=== PATIENT | male | born 1955 | race Caucasian/White ===

== ENCOUNTER 2016-02-26 03:28 | Emergency (ER) | payer OTHER ==
[~2016-02-26] VITALS: Ht 167.6 cm; Wt 77.1 kg
[~2016-02-26 03:28] MED LIST: ACIDOPHILUS1 EACH PO; ADULT WAL-100 MG/5 M PO; ALBUTEROL SULFAT3 M1 INH; ARTIFICIAL TEAR15 M3 OPH; ATIVAN0.5 MG PO; AUGMENTIN 875-1 EACH PO; COCONUT OIL 1 ML1 ML PO; COLACE20 MG/5 ML PO; CRANBERRY450 M3 PO; CYCLOBENZAPRINE5 M2 PO; DOCUSATE S60 MG/15 M PO; DURAGESIC12 MCG/HR TOP; FLOMAX(MONOGRA0.4 MG PO; IPRAT-ALBUT 0.5-3 ML INH; LEVAQUIN500 M1 PO; LEXAPRO 10MG10 MG PO; MIRALAX17 G1 PO; MIRALAX17 GM PO; MULTIVITAMIN1 TAB PO; NAMENDA XR28 MG PO; OXYBUTYNIN CHLOR5 M2 PO; PERCOCET 325 MG1 TA2 PO; PROTONIX40 M3 PO; PROTONIX40 M4 PO; REMERON 15MG TA15 MG PO; TIZANIDINE4 MG PO; TRAMADOL50 MG PO; TRAZODONE50 MG PO; VITAMIN D250000 UNIT PO; VITAMIN D50000 IU PO
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
[2016-02-26 04:53] LABS: ABSOLUTE BASOPHIL COUNT 0 /CUMM (0.0-0.2); ABSOLUTE EOSINOPHIL COUNT 0.1 /CUMM (0.0-0.7); ABSOLUTE GRANULOCYTE CT 7.5 /CUMM (1.4-6.5); ABSOLUTE LYMPH COUNT 1.9 /CUMM (1.2-3.4); ABSOLUTE MONOCYTE COUNT 0.4 /CUMM (0.10-0.60); BASOPHIL % 0.2 % (0.0-2.0); EOSINOPHIL % 0.5 % (0-5); GRANULOCYTE % 75.8 % (42.2-75.2); HEMATOCRIT 41.5 % (42-52); MEAN CORPUSCULAR HGB 29.5 PG (27.0-31.0); MEAN CORPUSCULAR HGB CONC 33.4 G/DL (33.0-37.0); MEAN CORPUSCULAR VOLUME 88.3 FL (80.0-94.0); PLATELET COUNT 225 /CUMM (130-400); RBC DISTRIBUTION WIDTH 14.1 % (11.5-14.5); WHITE BLOOD CELL COUNT 9.9 /CUMM (4.8-10.8)
--- NOTE | 2016-02-26 05:03 | RADIOLOGY REPORT ---
EXAMINATION: XR PORTABLE CHEST CLINICAL INFORMATION: Fever. COMPARISON: 07/20/2015 TECHNIQUE: Portable view of the chest was obtained. FINDINGS: Low lung volumes. No dense consolidation, edema, or effusion. No pneumothorax. The cardiomediastinal silhouette is within normal limits. No acute osseous abnormality. IMPRESSION: Hypoexpanded lungs with no acute findings.
--- NOTE | 2016-02-26 05:06 | CT SCAN REPORT ---
EXAMINATION: CT ABDOMEN AND PELVIS WITHOUT CONTRAST CLINICAL INFORMATION: Abdominal distention. Vomiting. COMPARISON: None. TECHNIQUE: Multidetector volumetric imaging was performed from the superior aspect of the liver through the pubic symphysis. Sagittal and coronal reformatted images were obtained on the technologist's workstation. DLP: 704 mGy-cm. FINDINGS: LUNG BASES: The visualized lung bases are unremarkable. LIVER, GALLBLADDER, AND BILIARY TREE: The liver is normal in size, shape, and attenuation. No focal hepatic lesion or biliary ductal dilatation is present. The gallbladder is unremarkable with no evidence of radiopaque gallstones, gallbladder wall thickening, or obvious pericholecystic inflammatory changes. PANCREAS: Unremarkable. SPLEEN: Unremarkable. ADRENAL GLANDS: Unremarkable. KIDNEYS AND URETERS: The kidneys are normal in size, shape, and attenuation. No hydronephrosis or hydroureter. No perinephric stranding. Bilateral calculi are seen. There is a 0.9 cm calculus in the right renal pelvis, 9 cm from the posterior axillary line, measuring 500 Hounsfield units. There is a right mid to upper pole calculus measuring 0.6 cm. There is a 0.3 cm left midpole calculus 6 cm from the posterior axillary line. The ureters are decompressed. BLADDER: Decompressed with a suprapubic catheter in place. GASTROINTESTINAL TRACT: The stomach and small bowel appear unremarkable. No dilated loops of bowel or evidence of obstruction. No colonic wall thickening or inflammatory change. Normal appendix. No free air or free fluid. ABDOMINAL WALL: No significant hernia is appreciated. LYMPH NODES: Normal. VASCULAR: Unremarkable. PELVIC VISCERA: The prostate and seminal vesicles are unremarkable. OSSEOUS STRUCTURES: No acute or suspicious osseous abnormality. Multilevel degenerative changes of the spine. Degenerative changes of the right hip. IMPRESSION: No hydronephrosis. Bilateral renal calculi, with a 0.9 cm calculus in the right renal pelvis. No bowel obstruction or inflammatory change.
[2016-02-26 05:34] VITALS: BP 120/76
[2016-02-26] MEDS ORDERED: SENNA8.6 M3 PO ×2 (11:37→15:53)
[2016-02-26] MEDS ORDERED: BACLOFEN10 M1 PO ×2 (11:38→15:53)
[2016-02-26] MEDS ORDERED: CLARITIN10 M1 PO ×2 (11:39→15:55)
[2016-02-26] MEDS ORDERED: CRANBERRY450 M3 PO (15:53)
[2016-02-26] MEDS ORDERED: ARTIFICIAL TEAR15 M4 OPH (15:55)
[2016-02-26] MEDS ORDERED: TRAZODONE HCL50 M1 PO (15:55)
[2016-02-26] MEDS ORDERED: MIRALAX17 G1 PO (15:56)
[2016-02-26] MEDS ORDERED: ROBITUSSIN COU118 M1 PO (15:56)
[2016-02-26] MEDS ORDERED: PROTONIX40 M3 PO (15:56)
[2016-02-26] MEDS ORDERED: LEXAPRO10 M1 PO (15:57)
[2016-03-13] MEDS ORDERED: LORAZEPAM0.5 M1 PO (15:16)
[2016-03-13] MEDS ORDERED: TRAMADOL HCL50 M1 PO (15:17)
[2016-03-13] MEDS ORDERED: VITAMIN D250000 UNIT PO (15:18)
[2016-03-13] MEDS ORDERED: ONDANSETRON HCL4 MG PO (15:20)
== END 2016-02-26 05:59 ==
LOC: ERH 03:28
PROVIDERS: Pediatrics
DX: N39.0 Urinary tract infection, site not specified (principal); R11.10 Vomiting, unspecified
CPT/HCPCS: 74176; 81001; 87040; 87071; 87086; 93005; 93010; 96374; 96375; J0131; J0696; J2405

== ENCOUNTER 2016-02-26 11:24 | Inpatient (IN) | payer OTHER ==
[~2016-02-26] VITALS: Ht 165.1 cm; Wt 68.0 kg
--- NOTE | 2016-02-26 11:30 | NUR ---
PT BIBA FROM ECF. PT WAS SEEN IN ER FOR SAME IN EARLY AM AND D/C BACK TO ECF WITH A DX OF UTI. PT RETURNS WITH AN INCREASE OF BLOOD IN HIS SPT DRAINAGE BAG. INCREASE IN DIAPHORESIS AND N/V. PT ARRIVES TO ED WITH NO ACTIVE VOMITING, NOTED BEADS OF SWEAT ON FOREHEAD. PT HAS HX OF DEMENTIA, HOWEVER IS TIGHTENING UP BODY AND APPEARING TO BE IN PAIN. MEI DELGADO D IN TO EVAL. PTS ABD NOTED TO BE FIRM/DISTENDED. ALSO NOTED WITH DRAINAGE AROUND SPT INSERTION SITE.
[2016-02-26] MEDS ORDERED: SENNA8.6 M3 PO ×2 (11:37→15:53)
[2016-02-26] MEDS ORDERED: BACLOFEN10 M1 PO ×2 (11:38→15:53)
[2016-02-26] MEDS ORDERED: CLARITIN10 M1 PO ×2 (11:39→15:55)
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
[2016-02-26 12:19] LABS: ABSOLUTE BASOPHIL COUNT 0 /CUMM (0.0-0.2); ABSOLUTE EOSINOPHIL COUNT 0 /CUMM (0.0-0.7); ABSOLUTE GRANULOCYTE CT 10.3 /CUMM (1.4-6.5); ABSOLUTE LYMPH COUNT 0.5 /CUMM (1.2-3.4); ABSOLUTE MONOCYTE COUNT 0.3 /CUMM (0.10-0.60); BASOPHIL % 0 % (0.0-2.0); EOSINOPHIL % 0.2 % (0-5); GRANULOCYTE % 92.4 % (42.2-75.2); HEMATOCRIT 37.1 % (42-52); MEAN CORPUSCULAR HGB 30.1 PG (27.0-31.0); MEAN CORPUSCULAR HGB CONC 33.8 G/DL (33.0-37.0); MEAN CORPUSCULAR VOLUME 88.9 FL (80.0-94.0); MEAN PLATELET VOLUME 7.6 FL (7.4-10.4); PLATELET COUNT 173 /CUMM (130-400); RBC DISTRIBUTION WIDTH 14.3 % (11.5-14.5); RED BLOOD CELL CT 4.18 /CUMM (4.70-6.10); WHITE BLOOD CELL COUNT 11.2 /CUMM (4.8-10.8)
--- NOTE | 2016-02-26 12:35 | NUR ---
PT MEDICATED WITH 2MG MORPHINE FOR PAIN, IV TYLENOL ADMINISTERED (SEE MAR) ATTEMPTED TO FLUSH SPT PER REQUEST, HOWEVER UNABLE TO GET ANY RETURN. PA AWARE, PT BLADDER SCANNED FOR APPRX 204ML URINE - PA AWARE OF THAT VALUE WELL. NS INFUSING, ROCEPHIN ADMINISTERED, AND CLEOCIN INFUSING AT THIS TIME (SEE MAR) PT RESTING MORE COMFORTABLY ON STRETCHER AT THIS TIME, MOANS HAVE DECREASED AT THIS TIME.
[2016-02-26 12:49] LABS: PT 13.1 SEC (9.4-12.5); PTT 25 SEC (25-37)
--- NOTE | 2016-02-26 12:56 | NUR ---
CRITICAL TEST RESULTS [id number] ANDRÉS MONK 60 M TESTS AND RESULTS: LACTIC ACID 3.3 Results received and read back by: DYANA SOLIS Results received date and time: 02/26/16 1256 The following provider was notified of the results, and read the results back: MEI SINGH Notified date and time: 02/26/16 at 1256
--- NOTE | 2016-02-26 13:10 | NUR ---
FAMILY MEMBER IS EXPLOSIVE WITH STAFF DEMANDING PHYSICIAN IMMEDIATELY AND NOT A PA. THIS RN TO BEDSIDE TO EXPLAIN THAT THE DOCTOR HAS ALREADY BEEN INVOLVED IN THE PATIENT'S CARE AND SHE WILL BE IN SHORTLY. FAMILY MEMBER IS DISSATISFIED AND DEMANDING THAT DOCTOR LEAVE BEDSIDE OF A CRITICAL PATIENT AND THAT THIS RN GET A DOCTOR FROM ANOTHER FLOOR. SHE CONTINUES TO SHOUT AT THIS NURSE AND IS UNABLE TO BE VERBALLY DEESCALATED. UNWILLING TO LISTEN TO PATIENT'S ISSUES AND INTERVENTIONS UP TO THIS POINT. WANTS DOCTOR AT THE BEDSIDE CONSISTENTLY. SHE WAS EXPLAINED HOW THIS IS NOT A HOSPITAL POLICY AND SHE BEGAN THREATENING AND STORMED OUT OF ED TO "GO UPSTAIRS TO GET A DOCTOR". DR ORLANDO AND CHARGE NURSE AWARE.
--- NOTE | 2016-02-26 13:18 | NUR ---
FAMILY BACK TO ROOM. DR ORLANDO AT BEDSIDE TO DEESCALATE PT AND EXPLAIN PLAN OF CARE.
--- NOTE | 2016-02-26 14:00 | NUR ---
PT REPOSITIONED IN BED, VITALS REASSESSED, RECTAL TEMP 98.9 AT THIS TIME, PT APPEARS TO HAVE AN INCREASE IN MUSCLE TIGHTNESS. PT MEDICATED WITH VALIUM ORDERED (SEE MAR)
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
--- NOTE | 2016-02-26 14:25 | NUR ---
HOUSE STAFF TO [facility].
--- NOTE | 2016-02-26 14:32 | NUR ---
PTS LABORER DRYING DEPARTMENT CALLED FOR UPDATE
--- NOTE | 2016-02-26 15:00 | NUR ---
REPEAT LACTIC ACID DRAWN AND SENT TO LAB. SST ALSO SENT
--- NOTE | 2016-02-26 15:09 | NUR ---
PT HAS BED ASSIGNMENT 235-1. RN NOTIFIED.
--- NOTE | 2016-02-26 15:30 | NUR ---
HOUSE STAFF TO [facility].
--- NOTE | 2016-02-26 15:35 | NUR ---
SPT CHANGED OUT BY DR ORLANDO, APPROX 300ML DARK CLOUDY URINE OBTAINED, SHORTLY AFTER PT NOTED WITH BLOOD COMING FROM HIS PENIS. CONDOM CATH PLACED, PT TURNED, REPOSITIONED, AND CLEANED UP.
--- NOTE | 2016-02-26 15:42 | NUR ---
CRITICAL TEST RESULTS [id number] ANDRÉS MONK 60 M TESTS AND RESULTS: LACTIC ACID 2.8 Results received and read back by: DYANA SOLIS Results received date and time: 02/26/16 1542 The following provider was notified of the results, and read the results back: DR ORLANDO Notified date and time: 02/26/16 at 1542
--- NOTE | 2016-02-26 15:46 | NUR ---
FLOOR WILL CALL BACK LATER WITH REPORT.
[2016-02-26] MEDS ORDERED: CRANBERRY450 M3 PO (15:53)
[2016-02-26] MEDS ORDERED: TRAZODONE HCL50 M1 PO (15:55)
[2016-02-26] MEDS ORDERED: ARTIFICIAL TEAR15 M4 OPH (15:55)
[2016-02-26] MEDS ORDERED: MIRALAX17 G1 PO (15:56)
[2016-02-26] MEDS ORDERED: ROBITUSSIN COU118 M1 PO (15:56)
[2016-02-26] MEDS ORDERED: PROTONIX40 M3 PO (15:56)
[2016-02-26] MEDS ORDERED: LEXAPRO10 M1 PO (15:57)
--- NOTE | 2016-02-26 16:07 | NUR ---
REPORT TO FERCHO TELLEZ.
--- NOTE | 2016-02-26 16:43 | NUR ---
ATTEMPT TO SEND PT UP AND WAS INFORMED ROOM IS STILL NOT READY JUNIE Lawson WAITED TILL 1600 TO GIVE REPORT AND WA INFORMED THEN THAT ROOM NEEDED TO BE CLEANED
[2016-02-26 17:47] VITALS: BP 110/74
--- NOTE | 2016-02-26 19:27 | Admission Certification ---
Admission Certification Certification Statement - As attending physician, I certify that at the time of - admission, based on clinical presentation, severity of - symptoms, need for further diagnostic testing and - therapeutic interventions, and risk of adverse outcomes - without in-hospital treatment, in my clinical assessment, - this patient requires an acute hospital stay for a minimum - of two nights or longer. I have also considered psychsocial - factors such as support system, advanced age, financial - issues, cognitive issues, and failed out-patient treatments, - past re-admission history, safety of patient, and lack of - compliance as applicable. Specific rationale supporting this admission is: Sepsis of urological origin
[2016-02-26 19:58] LABS: ABSOLUTE BASOPHIL COUNT 0 /CUMM (0.0-0.2); ABSOLUTE EOSINOPHIL COUNT 0 /CUMM (0.0-0.7); ABSOLUTE GRANULOCYTE CT 11.6 /CUMM (1.4-6.5); ABSOLUTE LYMPH COUNT 0.9 /CUMM (1.2-3.4); ABSOLUTE MONOCYTE COUNT 0.7 /CUMM (0.10-0.60); BASOPHIL % 0 % (0.0-2.0); EOSINOPHIL % 0.1 % (0-5); GRANULOCYTE % 87.7 % (42.2-75.2); MEAN CORPUSCULAR HGB 29.9 PG (27.0-31.0); MEAN CORPUSCULAR HGB CONC 33.5 G/DL (33.0-37.0); MEAN CORPUSCULAR VOLUME 89.3 FL (80.0-94.0); MEAN PLATELET VOLUME 7.9 FL (7.4-10.4); PLATELET COUNT 150 /CUMM (130-400); RBC DISTRIBUTION WIDTH 14.7 % (11.5-14.5); RED BLOOD CELL CT 3.23 /CUMM (4.70-6.10); WHITE BLOOD CELL COUNT 13.3 /CUMM (4.8-10.8)
[2016-02-26 20:03] LABS: HEMATOCRIT 28.8 % (42-52)
--- NOTE | 2016-02-26 20:14 | NUR ---
17:30- PT ARRIVED TO FLOOR VIA STRETCHER FROM ER. REPORT RECEIVED FROM MO ZAMAN RN. S-P TUBE DRAINING DARK CLOUDY YELLOW URINE. 40ML DAMARIS RED BLOOD TO [place] CATH. [place] CATH REMOVED AND PAD PLACED. SMALL AMOUNT OF RED BLOOD NOTED FROM URETHRA. PT DROWSY/ ARROUSABLE. VSS. PT MINIMALLY VERBAL AT BASELINE. HAS RENETTA BODY DEMENTIA. 18:15- DR. MURILLO NOTIFIED OF BLOOD TO PENIS. DR ESCOBAR TO ASSESS IN THE MORNING. CBC DRAWN AT 18:00: H/H TO BE MONITORED. BLOOD IS FROM STODDARD INSERTION ATTEMPT IN THE ED.
[2016-02-26 22:16] VITALS: BP 112/82
--- NOTE | 2016-02-27 06:38 | PN- Housestaff ---
JESSICA BORGES,NELLY 02/27/16 0637: Subjective Follow-up For: Sepsis of urological origin Hematuria Altered mental status Complaints: pt unable to provide hx Subjective: I followed up and examined the patient today. Of note, he is minimally verbal at baseline, and this morning, he was calm, lying in his bed, with no apparent distress. Overnight, he had maximum temperature of 103.2F. Afebrile as I examined him. Review of Systems Constitutional: Reports: fever. EENTM: Reports: no symptoms. Cardiovascular: Reports: no symptoms. Respiratory: Reports: no symptoms. Gastrointestinal: Reports: no symptoms. Genitourinary: Reports: no symptoms. Musculoskeletal: Reports: no symptoms. Skin: Reports: no symptoms. Neurological/Psychological: Reports: no symptoms. Hematologic/Endocrine: Reports: no symptoms. Objective Last 24 Hrs of Vital Signs/I&O Vital Signs Date Time Temp Pulse Resp B/P Pulse O2 O2 Flow FiO2 Ox Delivery Rate 02/26 0414 102.4 02/26 0405 102.4 02/26 0313 103.2 02/26 0304 103.2 02/26 0000 98 Nasal 2.0L Cannula 02/25 2216 99.1 93 20 112/82 98 02/25 1957 95 Nasal 2.0L Cannula 02/25 1747 98.2 79 18 110/74 95 02/25 1644 97.0 72 20 97/52 96 Nasal 2.0L Cannula 02/25 1542 95 Room Air 02/25 1535 97.9 78 20 104/63 95 Nasal 2.0L Cannula 02/25 1352 98.9 90 20 141/84 92 Room Air 02/25 1204 102.2 02/25 1140 102.2 02/25 1134 98.9 122 20 123/81 95 Room Air Intake & Output 02/26 0800 02/26 0000 02/25 1600 Intake Total 828 975 7966 Output Total 600 Balance 800 -300 1000 Intake, IV 885 817 4360 Output, Urine 600 Patient 68.039 kg Weight Physical Exam General Appearance: Alert, Cooperative, DEMENTED AT BASELINE, UNABLE TO GET SUBJECTIVE COMPLAINTS Other Physical Findings: Physical examnination: General: well nourished patient not in distress Head: Normocephalic, atraumatic Eyes: Pupils normal in size, regular, reacting to light and accommodation, EOM normal Ears: B/l normal on inspection Nose: Normal on inspection Throat/mouth: Moist mucosa Neck: Supple, full range of motion, no thyromegaly Heart: Regular rate, regular rhythm Lung: Normal breath sound bilaterally Added sound not heard Abd: Soft, non-tender, no distention appreciated, SUPRAPUBIC CATHETER IN PLACE WITHOUT LEAKAGE OR SURROUNDING LEAKAGE Back: Normal range of motion Extremities: Normal knee exam bilaterally, no pedal edema, Distal neurovascular intact Neurologic: Alert, oriented x3, Cranial exam grossly intact, Speech is clear and coherent Skin: Warm and dry Psychiatric: Calm, DEMENTED, AND MINIMALLY VERBAL, uttering few words intermittantly Current Medications: Current Medications Sig/Travis Start time Last Medication Dose Route Stop Time Status Admin Acetaminophen 1,000 MG Q6P PRN 02/26 1200 AC N/A 1 UNIT IV Acetaminophen 1,000 MG ONCE ONE 02/26 0315 DC 02/26 N/A 1 UNIT IV 02/26 0329 0313 Acetaminophen 650 MG Q6P PRN 02/25 2045 DC PO Ceftriaxone Sodium 1,000 MG DAILY@1200 02/26 1200 AC 02/26 IV 1125 Dextrose/Sodium 1,000 ML Q10H 02/25 1600 AC 02/26 Chloride IV 1125 Heparin Sodium 5,000 UNIT Q8 02/25 2200 CAN (Porcine) SC Morphine Sulfate 1 MG Q4P PRN 02/26 1400 AC 02/26 IV 1413 Morphine Sulfate 1 MG Q6PRN PRN 02/25 1600 DC 02/26 IV 1124 Patient Medication 1 UNIT ONE NR 02/25 1615 DC Teaching ED 02/25 1630 Potassium Chloride 40 MEQ ONCE ONE 02/26 1030 DC 02/26 PO 02/26 1031 1125 Sodium Chloride 1,000 ML BOLUS ONE 02/25 1600 DC 02/25 IV 02/25 1659 1558 Last 24 Hrs of Lab/Yossi Results Last 24 Hrs of Labs/Mics: Laboratory Tests 02/27/16 0842: Anion Gap 14, Estimated GFR > 60, BUN/Creatinine Ratio 11.8, Magnesium 1.7, CBC w Diff NO MAN DIFF REQ, RBC 3.74 L, MCV 89.9, MCH 30.3, RDW 14.6 H, MPV 7.9, Gran % 84.4 H, Lymphocytes % 9.5 L, Monocytes % 5.6, Eosinophils % 0.5, Basophils % 0 L, Absolute Granulocytes 6.4, Absolute Lymphocytes 0.7 L, Absolute Monocytes 0.4, Absolute Eosinophils 0, Absolute Basophils 0, PUBS MCHC 33.7 02/27/16 0440: Urinalysis LIGHT H, Urine Color ABDIRIZAK, Urine Clarity CLDY H, Urine pH 5.5, Ur Specific [place] 1.025, Urine Protein 100 H, Urine Ketones NEG, Urine Nitrite NEG, Urine Bilirubin NEG, Urine Urobilinogen 4.0 H, Ur Leukocyte Esterase MOD H, Ur Microscopic SEDIMENT EXAMINED, Urine RBC 25-50 H, Urine WBC 25-50 H, Urine Hemoglobin LARGE H, Urine Glucose NEG 02/26/161834: Lactic Acid Cancelled 02/26/161834: Lactic Acid 1.4, CBC w Diff NO MAN DIFF REQ, RBC 3.23 L, MCV 89.3, MCH 29.9, RDW 14.7 H, MPV 7.9, Gran % 87.7 H, Lymphocytes % 7.0 L, Monocytes % 5.2, Eosinophils % 0.1, Basophils % 0 L, Absolute Granulocytes 11.6 H, Absolute Lymphocytes 0.9 L, Absolute Monocytes 0.7 H, Absolute Eosinophils 0, Absolute Basophils 0, PUBS MCHC 33.5 02/26/16 1455: Lactic Acid 2.8 H Microbiology 02/26 439 URINE ROUT: Urine Culture - RECD Assessment/Plan Assessment: 60 yo M with past medical history of newly body dementia, neurogenic bladder/ urinary retention/status post suprapubic catheter, depression, referred from [facility] who came with 1 day history of lethargy, fever and altered mental status, and blood in the uro-bag. He was febrile at the emergency department with temperature 102.2, tachycardic, and there was no urine output in the suprapubic uro-bag. A Villa catheter was placed which drained thick, cloudy, blood-tinged urine, and some some blood was seen at the tip of the urethral meatus. Is currently being managed in the general medical floor for the following issues : #Sepsis of urological origin The patient's baseline condition had deteriorated, and was having fever with tachycardia, low urine output and labs showed leucocytosis, with 25-50 WBCs/hpf in urine examination, confirming the diagnosis of urinary tract infection with sepsis. -He is currently on ceftriaxone. Plan to continue the same. -Patient is receiving IV fluid at 100 mL per hour, D5W1/2NS. -Pain meds modified to Morphine 1mg q4PRN from q6PRN. -Awaiting blood, and urine culture reports. #Acute kidney injury, secondary to dehydration and urinary tract infection -Continue IV fluids at 100 and per hour -We'll use can be started after he passes a formal swallow eval. -Creatinine is already coming down from 1.5-1.1 as of this morning. We'll continue to follow up. #Diet: Currently nothing by mouth, pending swallow eval #DVT prophylaxis by Alps #CODE STATUS: Do not resuscitate/Do not intubate Problem List: 1. Sepsis 2. UTI (urinary tract infection) 3. Hematuria 4. Lewy body dementia Pain Ratin Pain Location: - Pain Goal: Pain 4 or less Pain Plan: Morphine, Acetaminophine prn Tomorrow's Labs & Rationales: BEP, CBC to follow up on his ?improving kidney, has SUZIE now. Ongoing sepsis, and as the patitn cannot give verbal info, need to rely on clinical and lab values. GORDO KIRBY MD 02/27/16 1300: Attending MD Review Statement Attending Statement Attending MD Statement: examined this patient, discuss w/resident/PA/HOT BOX SPOTTER, agreed w/resident/PA/HOT BOX SPOTTER, reviewed EMR data (avail) Attending Assessment/Plan: 60M PMH Lewy Body dementia, neurogenic bladder with chronic suprapubic catheter brought in from [facility] for fever and confusion. Febrile 103 on admission with normal BP, WBC 14 initially but improved to 7. Ceftriaxone started in ED. Urine culture growing gram negative rods. Patient was alert and happy this morning, but several hours later became agitated and delirious. Unable to give history at this time. Currently BP is 96/50. 1. Gram negative sepsis secondary to UTI 2. Toxic encephalopathy 3. Lewy Body dementia 4. Chronic suprapubic catheter Plan - Discontinue Ceftriaxone, start Ceftazidime - Adjust antibiotics based on culture results - Consider urology evaluation - Monitor urine output - Continue IV hydration - Continue home medications - Hold any anti-hypertensives due to sepsis - DVT PPx
[2016-02-27 06:51] VITALS: BP 96/50
[2016-02-27 09:51] LABS: ABSOLUTE BASOPHIL COUNT 0 /CUMM (0.0-0.2); ABSOLUTE EOSINOPHIL COUNT 0 /CUMM (0.0-0.7); ABSOLUTE GRANULOCYTE CT 6.4 /CUMM (1.4-6.5); ABSOLUTE LYMPH COUNT 0.7 /CUMM (1.2-3.4); ABSOLUTE MONOCYTE COUNT 0.4 /CUMM (0.10-0.60); BASOPHIL % 0 % (0.0-2.0); EOSINOPHIL % 0.5 % (0-5); GRANULOCYTE % 84.4 % (42.2-75.2); HEMATOCRIT 33.6 % (42-52); MEAN CORPUSCULAR HGB 30.3 PG (27.0-31.0); MEAN CORPUSCULAR HGB CONC 33.7 G/DL (33.0-37.0); MEAN CORPUSCULAR VOLUME 89.9 FL (80.0-94.0); MEAN PLATELET VOLUME 7.9 FL (7.4-10.4); PLATELET COUNT 145 /CUMM (130-400); RBC DISTRIBUTION WIDTH 14.6 % (11.5-14.5); RED BLOOD CELL CT 3.74 /CUMM (4.70-6.10); WHITE BLOOD CELL COUNT 7.6 /CUMM (4.8-10.8)
[2016-02-27 14:11] VITALS: BP 110/60
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
[2016-02-27 22:15] VITALS: BP 124/70
--- NOTE | 2016-02-28 05:57 | PN- Housestaff ---
JESSICA BORGES,NELLY 02/28/16 0556: Subjective Follow-up For: Sepsis of urological origin Hematuria Altered mental status Complaints: pt unable to provide hx Subjective: I examined and followed up the patient today. The patient is lying comfortably on his bed, not in any acute distress. He appears more oriented and is more verbal than yesterday. He did not have any complaints, but asking him for new changes or new complaints is just not reliable right now. No fever in the past 20 hours, no overnight issues. Review of Systems Constitutional: Reports: no symptoms. EENTM: Reports: no symptoms. Cardiovascular: Reports: no symptoms. Respiratory: Reports: no symptoms. Gastrointestinal: Reports: no symptoms. Genitourinary: Reports: no symptoms. Musculoskeletal: Reports: no symptoms. Skin: Reports: no symptoms. Neurological/Psychological: Reports: no symptoms. Hematologic/Endocrine: Reports: no symptoms. Objective Last 24 Hrs of Vital Signs/I&O Vital Signs Date Time Temp Pulse Resp B/P Pulse O2 O2 Flow FiO2 Ox Delivery Rate 02/27 0130 98.5 02/27 0023 102.1 02/26 2215 97.8 75 20 124/70 97 02/26 1600 Nasal 2.0L Cannula 02/26 1411 100.4 108 20 110/60 91 02/26 1330 100.2 02/26 1230 101.9 02/26 0800 92 Nasal 2.0L Cannula 02/26 0651 98.9 90 18 96/50 95 Nasal 2.0L Cannula Intake & Output 02/27 0800 02/27 0000 02/26 1600 Intake Total 700 Output Total 400 550 Balance 300 -550 Intake, IV 700 Intake, Oral 0 Output, Urine 400 550 Physical Exam General Appearance: Alert, Oriented X3, Cooperative, No Acute Distress Other Physical Findings: Physical examnination: General: well nourished patient not in distress Head: Normocephalic, atraumatic Eyes: Pupils normal in size, regular, reacting to light and accommodation, EOM normal Ears: B/l normal on inspection Nose: Normal on inspection Throat/mouth: Moist mucosa Neck: Supple, full range of motion, no thyromegaly Heart: Regular rate, regular rhythm Lung: Normal breath sound bilaterally Added sound not heard Abd: Soft, non-tender, no distention appreciated, SUPRAPUBIC CATHETER IN PLACE WITHOUT LEAKAGE OR SURROUNDING LEAKAGE Back: Normal range of motion Extremities: Normal knee exam bilaterally, no pedal edema, Distal neurovascular intact Neurologic: Alert, oriented x3, Cranial exam grossly intact, Speech is clear and coherent Skin: Warm and dry Psychiatric: Calm, DEMENTED, AND MINIMALLY VERBAL, uttering few words intermittantly Current Medications: Current Medications Sig/Travis Start time Last Medication Dose Route Stop Time Status Admin Acetaminophen 1,000 MG Q6P PRN 02/26 1200 AC 02/27 N/A 1 UNIT IV 0023 Acetaminophen 650 MG Q6P PRN 02/25 2045 DC PO Ceftriaxone Sodium 1,000 MG DAILY@1200 02/26 1200 AC 02/26 IV 1125 Dextrose/Sodium 1,000 ML Q10H 02/25 1600 AC 02/26 Chloride IV 2237 Morphine Sulfate 1 MG Q4P PRN 02/26 1400 AC 02/26 IV 2236 Morphine Sulfate 1 MG Q6PRN PRN 02/25 1600 DC 02/26 IV 1124 Potassium Chloride 40 MEQ ONCE ONE 02/26 1030 DC 02/26 PO 02/26 1031 1125 Last 24 Hrs of Lab/Yossi Results Last 24 Hrs of Labs/Mics: Laboratory Tests 02/28/16 0510: Sodium Pending, Potassium Pending, Chloride Pending, Carbon Dioxide Pending, Anion Gap Pending, BUN Pending, Creatinine Pending, BUN/Creatinine Ratio Pending , Magnesium Pending, CBC w Diff Pending, WBC Pending, RBC Pending, Hgb Pending, Hct Pending, MCV Pending, MCH Pending, RDW Pending, Plt Count Pending, MPV Pending, PUBS MCHC Pending 02/27/16 0842: Anion Gap 14, Estimated GFR > 60, BUN/Creatinine Ratio 11.8, Magnesium 1.7, CBC w Diff NO MAN DIFF REQ, RBC 3.74 L, MCV 89.9, MCH 30.3, RDW 14.6 H, MPV 7.9, Gran % 84.4 H, Lymphocytes % 9.5 L, Monocytes % 5.6, Eosinophils % 0.5, Basophils % 0 L, Absolute Granulocytes 6.4, Absolute Lymphocytes 0.7 L, Absolute Monocytes 0.4, Absolute Eosinophils 0, Absolute Basophils 0, PUBS MCHC 33.7 Assessment/Plan Assessment: 60 yo M with past medical history of newly body dementia, neurogenic bladder/ urinary retention/status post suprapubic catheter, depression, referred from [facility] who came with 1 day history of lethargy, fever and altered mental status, and blood in the uro-bag. He was febrile at the emergency department with temperature 102.2, tachycardic, and there was no urine output in the suprapubic uro-bag. A Villa catheter was placed which drained thick, cloudy, blood-tinged urine, and some some blood was seen at the tip of the urethral meatus. Is currently being managed in the general medical floor for the following issues : #Sepsis of urological origin The patient's baseline condition had deteriorated, and was having fever with tachycardia, low urine output and labs showed leucocytosis, with 25-50 WBCs/hpf in urine examination, confirming the diagnosis of urinary tract infection with sepsis. -Patient is receiving IV fluid at 100 mL per hour, D5W1/2NS. Pending swallow eval today to advance diet. -Pain meds modified to Morphine 1mg q4PRN from q6PRN. -Awaiting blood, and urine culture reports. Blood culture growing Gram positice cocci in clusters, awaiting identification and sensitivity. Ceftazidime changed to Vancomycin to cover MRSA. Will adjust according to sensitivity report. MRSA screening sent. #Acute kidney injury, secondary to dehydration and urinary tract infection -Continue IV fluids at 100 ml per hour -We'll use can be started after he passes a formal swallow eval. -Creatinine is already coming down from 1.5-1.1 as of this morning. We'll continue to follow up. #Diet: Currently nothing by mouth, pending swallow eval #DVT prophylaxis by Alps #CODE STATUS: Do not resuscitate/Do not intubate Problem List: 1. Sepsis 2. UTI (urinary tract infection) 3. Hematuria 4. Lewy body dementia Pain Ratin Pain Location: - Pain Goal: Remain pain free Pain Plan: morphine prn Tomorrow's Labs & Rationales: - GORDO KIRBY MD 02/28/16 1435: Attending MD Review Statement Attending Statement Attending MD Statement: examined this patient, discuss w/resident/PA/BORING MACHINE SET UP OPERATOR JIG, agreed w/resident/PA/BORING MACHINE SET UP OPERATOR JIG, reviewed EMR data (avail) Attending Assessment/Plan: 60M PMH Lewy Body dementia, neurogenic bladder with chronic suprapubic catheter [facility] and [facility]. Febrile 103 on admission with normal BP, WBC 14 initially but improved to 7. Ceftriaxone started in ED. Urine culture growing gram negative rods. Patient vastly improved from yesterday. He is awake, alert, and talking. Per daughter patient is talking more than he has in months. BP has improved, afebrile overnight, WBC improved from 13 to 4.9, creatinine improved from 1.5 to 0.8. Cultures are growing gram positive cocci. 1. Gram positive sepsis secondary to UTI 2. Toxic encephalopathy 3. Lewy Body dementia 4. Chronic suprapubic catheter Plan - Started Vancomycin for GPC in blood, will continue along with Ceftazidime which has greatly improved his clinical status, will de-escalate based on culture results. - Follow urology recommendations. Patient will go for cystoscopy on 03/01 - Monitor urine output - Continue IV hydration - Continue home medications - Hold any anti-hypertensives due to sepsis - DVT PPx - DVT PPx
[2016-02-28 07:06] VITALS: BP 118/74
[2016-02-28 08:18] LABS: ABSOLUTE BASOPHIL COUNT 0 /CUMM (0.0-0.2); ABSOLUTE EOSINOPHIL COUNT 0.2 /CUMM (0.0-0.7); ABSOLUTE GRANULOCYTE CT 3.3 /CUMM (1.4-6.5); ABSOLUTE MONOCYTE COUNT 0.3 /CUMM (0.10-0.60); BASOPHIL % 0.2 % (0.0-2.0); EOSINOPHIL % 3.2 % (0-5); GRANULOCYTE % 68.1 % (42.2-75.2); HEMATOCRIT 31.4 % (42-52); MEAN CORPUSCULAR HGB 30.2 PG (27.0-31.0); MEAN CORPUSCULAR HGB CONC 33.8 G/DL (33.0-37.0); MEAN CORPUSCULAR VOLUME 89.5 FL (80.0-94.0); PLATELET COUNT 133 /CUMM (130-400); RBC DISTRIBUTION WIDTH 14.2 % (11.5-14.5); RED BLOOD CELL CT 3.51 /CUMM (4.70-6.10); WHITE BLOOD CELL COUNT 4.9 /CUMM (4.8-10.8)
[2016-02-28 14:09] VITALS: BP 126/74
[2016-02-28 21:53] VITALS: BP 128/76
--- NOTE | 2016-02-29 00:39 | NUR ---
PATIENT IS ALERT AND CONFUSED. VITAL SIGNS STABLE. ON ROOM AIR. NO DISTRESS NOTED. PATIENT RESTING AT THIS TIME. STODDARD CARE GIVEN. WILL CONTINUE TO MONITOR
--- NOTE | 2016-02-29 05:48 | PN- Housestaff ---
JESSICA BORGES,NELLY 02/29/16 0548: Subjective Follow-up For: Sepsis of urological origin Hematuria Altered mental status Complaints: pt unable to provide hx Subjective: I followed up and examined the patient today. Patient is lying comfortably on the bed, is alert, more verbal, is able to speak in full sentences compared to the only half the time yesterday. He denies any complaints, and was comfortable while I carried out the examination. Getting a reliable feedback is not possible verbally from the patient due to his baseline demented condition, but the physical examination can he helpful to get response as well. Vitals stable in > last 42 hours, no issues overnight. Review of Systems Constitutional: Reports: see HPI, fever. EENTM: Reports: no symptoms. Cardiovascular: Reports: no symptoms. Respiratory: Reports: no symptoms. Gastrointestinal: Reports: no symptoms. Genitourinary: Reports: no symptoms. Musculoskeletal: Reports: no symptoms. Skin: Reports: no symptoms. Neurological/Psychological: Reports: no symptoms (no change). Hematologic/Endocrine: Reports: no symptoms. Objective Last 24 Hrs of Vital Signs/I&O Vital Signs Date Time Temp Pulse Resp B/P Pulse O2 O2 Flow FiO2 Ox Delivery Rate 02/27 2153 99.7 88 18 128/76 90 02/27 1600 Room Air 02/27 1409 99.0 74 18 126/74 96 Room Air 02/27 0800 96 Room Air 02/27 0706 97.9 60 18 118/74 98 Intake & Output 02/28 0800 02/28 0000 02/27 1600 Intake Total 200 800 Output Total 450 400 Balance -250 400 Intake, IV 800 Intake, Oral 200 Number 1 Bowel Movements Output, Urine 450 400 Patient 68.039 kg Weight Physical Exam General Appearance: Alert, Cooperative, No Acute Distress Other Physical Findings: Physical examnination: General: well nourished patient not in distress, more verbal today Head: Normocephalic, atraumatic Eyes: Pupils normal in size, regular, reacting to light and accommodation, EOM normal Ears: B/l normal on inspection Nose: Normal on inspection Throat/mouth: Moist mucosa Neck: Supple, full range of motion, no thyromegaly Heart: Regular rate, regular rhythm Lung: Normal breath sound bilaterally Added sound not heard Abd: Soft, non-tender, no distention appreciated, SUPRAPUBIC CATHETER IN PLACE WITHOUT LEAKAGE OR SURROUNDING LEAKAGE Back: Normal range of motion Extremities: Normal knee exam bilaterally, no pedal edema, Distal neurovascular intact Neurologic: Alert, oriented x3, Cranial exam grossly intact, Speech is clear and coherent Skin: Warm and dry Psychiatric: Calm, DEMENTED, AND MORE VERBAL THAN YESTERDAY, better than 2 days ago (yesterday was partially verbal too), uttering few words intermittantly Current Medications: Current Medications Sig/Travis Start time Last Medication Dose Route Stop Time Status Admin Acetaminophen 1,000 MG Q6P PRN 02/26 1200 AC 02/27 N/A 1 UNIT IV 0023 Ceftazidime 1,000 MG IQ8 02/27 1600 AC 02/28 IV 0045 Ceftazidime 1,000 MG IQ8 02/27 0800 DC 02/27 IV 0839 Dextrose/Sodium 1,000 ML Q10H 02/25 1600 AC 02/27 Chloride IV 2303 Morphine Sulfate 1 MG Q4P PRN 02/26 1400 AC 02/27 IV 2303 Vancomycin HCl 1,000 MG BID 02/27 1000 AC 02/27 Sodium Chloride 250 ML IV 2302 Last 24 Hrs of Lab/Yossi Results Last 24 Hrs of Labs/Mics: Microbiology 02/27 1220 UPPER RESP: Surveillance Culture - RECD Assessment/Plan Assessment: 60 yo M with past medical history of newly body dementia, neurogenic bladder/ urinary retention/status post suprapubic catheter, depression, referred from [facility] who came with 1 day history of lethargy, fever and altered mental status, and blood in the uro-bag. He was febrile at the emergency department with temperature 102.2, tachycardic, and there was no urine output in the suprapubic uro-bag. A Villa catheter was placed which drained thick, cloudy, blood-tinged urine, and some some blood was seen at the tip of the urethral meatus. Is currently being managed in the general medical floor for the following issues : #Sepsis of urological origin The patient's baseline condition had deteriorated, and was having fever with tachycardia, low urine output and labs showed leucocytosis, with 25-50 WBCs/hpf in urine examination, confirming the diagnosis of urinary tract infection with sepsis. His overall condition seems to be improving. -Pain meds modified to Morphine 1mg q4PRN from q6PRN. -Patient is receiving IV fluid at 100 mL per hour, D5W1/2NS. -He passed swallow eval and regular diet was started yesterday. -He needs someone to cut the food and feed him, which was being done at his home. -Awaiting blood, and urine culture reports. Blood culture growing Gram positice cocci in clusters, awaiting identification and sensitivity. Ceftazidime changed to Vancomycin to cover MRSA. Will adjust according to sensitivity report. MRSA screening sent. #Acute kidney injury, secondary to dehydration and urinary tract infection -Continue IV fluids at 100 ml per hour -We'll use can be started after he passes a formal swallow eval. -Creatinine is already coming down from 1.5-to 0.8 as of yesterday morning. We' ll continue to follow up. #Lewy body dementia #Diet: Currently nothing by mouth, pending swallow eval #DVT prophylaxis by Alps #CODE STATUS: Do not resuscitate/Do not intubate Problem List: 1. Sepsis 2. UTI (urinary tract infection) 3. Hematuria 4. Lewy body dementia Pain Ratin Pain Location: - Pain Goal: Remain pain free Pain Plan: morphine prn Tomorrow's Labs & Rationales: - GORDO KIRBY MD 02/29/16 1525: Attending MD Review Statement Attending Statement Attending MD Statement: examined this patient, discuss w/resident/PA/PRINT PROJECT MANAGER, agreed w/resident/PA/PRINT PROJECT MANAGER, reviewed EMR data (avail) Attending Assessment/Plan: 60M PMH Lewy Body dementia, neurogenic bladder with chronic suprapubic catheter brought [facility] for fever and confusion. Febrile 103 on admission with normal BP, WBC 14 initially but improved to 7. Ceftriaxone started in ED. Urine culture growing staph aureus. Improved on Ceftazidime, Vancomycin started on 02/27 after GPC grew in blood. Patient continues to improve. He is comfortable, awake, and alert with no complaints. Still confused but at his baseline. 1. Staph aureus sepsis secondary to UTI 2. Toxic encephalopathy 3. Lewy Body dementia 4. Chronic suprapubic catheter Plan - Continue Vancomycin until sensitivities return - Discontinue Ceftazidime - Follow urology recommendations. Patient will go for cystoscopy on 03/01 - NPO after midnight - Monitor urine output - Continue IV hydration - Continue home medications - Hold any anti-hypertensives due to sepsis - DVT PPx
[2016-02-29 06:45] VITALS: BP 130/80
--- NOTE | 2016-02-29 09:59 | Discharge Summary ---
Visit Information Visit Dates Admission Date: 02/26/16 Discharge Date: 03/03/16 Hospital Course Course Attending Physician: GORDO KIRBY MD Primary Care Physician: SERINA BOYD MD Hospital Course: This is a 60-year-old male with a past medical history fluid body dementia, anxiety, depression, neurogenic bladder with indwelling suprapubic catheter who presented to the ED with altered mental status Vitals and admission blood pressure 123/81, respiration 20, pulse rate 122, repeat 90, temperature 98.9, oxygen saturation 94% on room air. Labs an admission WBC 13.3, hemoglobin 9.7, hematocrit 28.8, platelet 150, sodium 142, potassium 3.3, BUN 19, creatinine 1.5. Hospital course 1. Pyelonephritis as patient presented with fever and white count: Patient was admitted to general medical floor and was started on empiric IV antibiotics pending blood cultures/urine culture. Also started on IV fluids. CAT scan done 2 days prior to admission showed bilateral renal calculi with a 0.9 cm renal calculus in the right renal pelvis which possibly could have been the source. Urology was consulted as the calculi could be the nidus for infection and this would result in recurrent urinary tract infection, which possibly should be removed. Patient had cystoscopy and right retrograde pyelogram, ureteroscopy, right stent placement -yag laser standby on 03/01/2016. He also had removal of suprapubic catheter and a placement of new 20 [place] Villa catheter in the suprapubic tube site on the same day. Blood cultures came back positive for staph aureus and his antibiotic coverage was narrowed based on sensitivity. Plan is to send him on Augmentin for a total course of 14 days. He should follow-up with urology and have an indwelling catheter changed as per recommendation. 2. Altered mental status secondary to sepsis of urological origin. Patient has underlying history of lewy body dementia. He returned to his baseline once infection started clearing up. He is a resident of [facility] and plan is to discharge him back to the halfway. He was continued on his home medications. 3. SUZIE: most likely due to poor by mouth intake in the setting of infection: Probably prerenal improved with IV fluids and his creatinine returned back to normal 4. Depression: He was continued on Lexapro. DVT prophylaxis with Alps DNR/DNI Complications: None Allergies: Coded Allergies: No Known Allergies (05/01/15) Significant Procedures: cystoscopy and right retrograde pyelogram, ureteroscopy, right stent placement - yag laser standby on 03/01/2016. He also had removal of suprapubic catheter and a placement of 20 [place] Villa catheter into the suprapubic tube site. Pertinent Lab Results: Laboratory Tests 03/02 0705 Chemistry Sodium (137 - 145 mmol/L) 143 Potassium (3.5 - 5.1 mmol/L) 3.4 L Chloride (98 - 107 mmol/L) 102 Carbon Dioxide (22 - 30 mmol/L) 27 Anion Gap (5 - 16) 14 BUN (9 - 20 mg/dL) 7 L Creatinine (0.7 - 1.2 mg/dL) 0.8 Estimated GFR (>60 ml/min) > 60 BUN/Creatinine Ratio (7 - 25 %) 8.8 Hematology CBC w Diff NO MAN DIFF REQ WBC (4.8 - 10.8 /CUMM) 5.4 RBC (4.70 - 6.10 /CUMM) 3.59 L Hgb (14.0 - 18.0 G/DL) 10.8 L Hct (42 - 52 %) 31.7 L MCV (80.0 - 94.0 FL) 88.4 MCH (27.0 - 31.0 PG) 30.0 RDW (11.5 - 14.5 %) 14.2 Plt Count (130 - 400 /CUMM) 206 MPV (7.4 - 10.4 FL) 7.7 Gran % (42.2 - 75.2 %) 48.4 Lymphocytes % (20.5 - 51.1 %) 36.6 Monocytes % (1.7 - 9.3 %) 11.9 H Eosinophils % (0 - 5 %) 2.6 Basophils % (0.0 - 2.0 %) 0.5 Absolute Granulocytes (1.4 - 6.5 /CUMM) 2.6 Absolute Lymphocytes (1.2 - 3.4 /CUMM) 2.0 Absolute Monocytes (0.10 - 0.60 /CUMM) 0.6 Absolute Eosinophils (0.0 - 0.7 /CUMM) 0.1 Absolute Basophils (0.0 - 0.2 /CUMM) 0 PUBS MCHC (33.0 - 37.0 G/DL) 34.0 Disposition Summary Disposition Principal Diagnosis: 1. Pyelonephritis 2. Altered mental status 3. SUZIE Additional Diagnosis: 1. Depression Discharge Disposition: SNF Discharge Instructions General Discharge Information Code Status: Do Not Resucitate/Intubat Patient's Diet: Regular diet Patient's Activity: Bed bound Follow-Up Instructions/Appts: 1. Follow up with PCP in a week upon discharge 2. Follow up with Urology as per their recommendation. Medications at Discharge Discharge Medications: Continue taking these medications: Sennosides (Senna) 8.6 MG TABLET 2 Tablet ORAL DAILY Baclofen (Baclofen) 10 MG TABLET 0.5 Tablet ORAL DAILY Cranberry Fruit Concentrate (Cranberry) 450 MG CAPSULE 1 Capsule ORAL TWICE DAILY Dextran 70/Hypromellose (Artificial Tears Eye Drops) 15 ML DROPS 1 DROP In the eye AT 9 PM Trazodone HCl (Trazodone HCl) 50 MG TABLET 1 Tablet ORAL Every night Loratadine (Claritin) 10 MG TABLET 1 Tablet ORAL DAILY Guaifenesin/Dextromethorphan (Robitussin Cough-Chest Dm Liq) 200 MG-10 MG/5 ML LIQUID 10 Milliliters ORAL THREE TIMES DAILY Pantoprazole Sodium (Protonix) 40 MG TABLET.DR 1 Tablet ORAL DAILY Polyethylene Glycol 3350 (Miralax) 17 GRAM POWD.PACK 1 Packet ORAL DAILY Instructions: dissolve in water Escitalopram Oxalate (Lexapro) 10 MG TABLET 1 Tablet ORAL DAILY Start taking the following new medications: Amoxicillin/Potassium Clav (Augmentin 875-125 Tablet) 875 MG-125 MG TABLET 1 Tablet ORAL TWICE DAILY Days = 9 No Refills Oxycodone HCl/Acetaminophen (Percocet 5-325 MG Tablet) 5 MG-325 MG TABLET 1 Tablet ORAL TWICE DAILY as needed for PAIN Qty = 15 No Refills Copies To: SHAWN BORGES,SULEMAN; OLIVER BORGES,SERINA Monte
[2016-02-29 15:35] VITALS: BP 120/80
[2016-03-01 06:15] VITALS: BP 122/78
--- NOTE | 2016-03-01 07:33 | PN- Housestaff ---
JESSICA BORGES,NELLY 03/01/16 0732: Subjective Follow-up For: Sepsis of urological origin Hematuria Altered mental status Complaints: pt unable to provide hx Subjective: I followed up and examined the patient today. Patient is lying comfortably on the bed, is alert, more verbal, is able to speak in full sentences just like yesterday. He denies any complaints, and was comfortable while I carried out the examination. Getting a reliable feedback is not possible verbally from the patient due to his baseline demented condition, but the physical examination can he helpful to get response as well. Vitals stable in > last 42 hours, no issues overnight. He is due to get surgery (?ESWL) to remove urinary tract stone later in the afternoon. He is currently NPO. Review of Systems Constitutional: Reports: no symptoms. EENTM: Reports: no symptoms. Cardiovascular: Reports: no symptoms. Respiratory: Reports: no symptoms. Gastrointestinal: Reports: no symptoms. Genitourinary: Reports: no symptoms. Musculoskeletal: Reports: no symptoms. Skin: Reports: no symptoms. Neurological/Psychological: Reports: no symptoms. Hematologic/Endocrine: Reports: no symptoms. Objective Last 24 Hrs of Vital Signs/I&O Vital Signs Date Time Temp Pulse Resp B/P Pulse O2 O2 Flow FiO2 Ox Delivery Rate 03/01 0615 98.0 64 20 122/78 94 Room Air 02/28 2146 98.7 68 20 97 Room Air 02/28 1535 97.9 68 20 120/80 95 Intake & Output 03/01 1600 03/01 0800 03/01 0000 Intake Total 340 Output Total 450 650 Balance -450 -310 Intake, IV 100 Intake, Oral 240 Number 1 2 Bowel Movements Output, Urine 450 650 Physical Exam General Appearance: Alert, Cooperative, No Acute Distress Other Physical Findings: Physical examnination: General: well nourished patient not in distress, more verbal today Head: Normocephalic, atraumatic Eyes: Pupils normal in size, regular, reacting to light and accommodation, EOM normal Ears: B/l normal on inspection Nose: Normal on inspection Throat/mouth: Moist mucosa Neck: Supple, full range of motion, no thyromegaly Heart: Regular rate, regular rhythm Lung: Normal breath sound bilaterally Added sound not heard Abd: Soft, non-tender, no distention appreciated, SUPRAPUBIC CATHETER IN PLACE WITHOUT LEAKAGE OR SURROUNDING LEAKAGE Back: Normal range of motion Extremities: Normal knee exam bilaterally, no pedal edema, Distal neurovascular intact Neurologic: Alert, oriented x3, Cranial exam grossly intact, Speech is clear and coherent Skin: Warm and dry Psychiatric: Calm, DEMENTED, BUT MORE VERBAL THAN YESTERDAY, better than 2 days ago (yesterday was partially verbal too), uttering few words intermittantly Current Medications: Current Medications Sig/Travis Start time Last Medication Dose Route Stop Time Status Admin Acetaminophen 1,000 MG Q6P PRN 02/26 1200 AC 02/27 N/A 1 UNIT IV 0023 Baclofen 5 MG DAILY 02/28 1844 AC 03/01 PO 0854 Ceftazidime 1,000 MG IQ8 02/27 1600 DC 02/28 IV 0822 Dextrose/Sodium 1,000 ML Q13H 03/01 0845 AC 03/01 Chloride IV 0852 Dextrose/Sodium 1,000 ML Q10H 02/25 1600 DC 02/27 Chloride IV 2303 Escitalopram Oxalate 10 MG DAILY 03/01 1000 AC 03/01 PO 0854 Morphine Sulfate 1 MG Q4P PRN 02/26 1400 AC 03/01 IV 0849 Vancomycin HCl 1,000 MG BID 02/27 1000 AC 02/28 Sodium Chloride 250 ML IV 2110 Assessment/Plan Assessment: 60 yo M with past medical history of Lewy body dementia, neurogenic bladder/ urinary retention/status post suprapubic catheter, depression, referred from [facility] who came with 1 day history of lethargy, fever and altered mental status, and blood in the uro-bag. He was febrile at the emergency department with temperature 102.2, tachycardic, and there was no urine output in the suprapubic uro-bag. A Villa catheter was placed which drained thick, cloudy, blood-tinged urine, and some some blood was seen at the tip of the urethral meatus. Is currently being managed in the general medical floor for the following issues : #Sepsis of urological origin, getting better The patient's baseline condition had deteriorated, and was having fever with tachycardia, low urine output and labs showed leucocytosis, with 25-50 WBCs/hpf in urine examination, confirming the diagnosis of urinary tract infection with sepsis. His overall condition seems to be improving. -Pain meds modified to Morphine 1mg q4PRN from q6PRN. -He passed swallow eval and regular diet was started, but is now NPO. -Still awaiting blood, and urine culture reports. Blood culture growing Gram positice cocci in clusters, Staph aureus, sensitive to ampicillin . Other antibiotics stopped and patient placed on Unasyn. MRSA screening sent. -Patient is undergoing surgical procedure, ? ESWL later this afternoon with Dr. Boateng. He is currently nothing by mouth pending surgery, and further surgical orders. Plan to discharge him on discretion of Surgical team. Medically better already. #Acute kidney injury, secondary to dehydration and urinary tract infection -Patient is receiving IV fluid at 75mL per hour, D5W1/2NS as he is currently NPO awaiting surgery later today. -Creatinine is already coming down from 1.5-to 0.8. We'll continue to follow up. #Lewy body dementia #Diet: Currently nothing by mouth, pending swallow eval #DVT prophylaxis by Alps #CODE STATUS: Do not resuscitate/Do not intubate Problem List: 1. Sepsis 2. UTI (urinary tract infection) 3. Hematuria 4. Lewy body dementia Pain Ratin Pain Location: - Pain Goal: Remain pain free Pain Plan: morphine prn Tomorrow's Labs & Rationales: CBC, BEP after surgery today GORDO KIRBY MD 03/01/16 1448: Attending MD Review Statement Attending Statement Attending MD Statement: examined this patient, discuss w/resident/PA/SANDBLASTER STONE, agreed w/resident/PA/SANDBLASTER STONE, reviewed EMR data (avail) Attending Assessment/Plan: 60M PMH Lewy Body dementia, neurogenic bladder with chronic suprapubic catheter [facility] for fever and confusion. Febrile 103 on admission with normal BP, WBC 14 initially but improved to 7. Ceftriaxone started in ED. Urine culture growing staph aureus. Improved on Ceftazidime, Vancomycin started on 02/27 after GPC grew in blood. Patient continues to improve. He is comfortable, awake, and alert with no complaints. Still confused but at his baseline. 1. Methicillin-resistant Staph aureus sepsis secondary to UTI 2. Toxic encephalopathy 3. Lewy Body dementia 4. Chronic suprapubic catheter Plan - Discontinue Vancomycin - For cystoscopy and ESWL today - Restart diet after procedure - Monitor urine output - Continue IV hydration - Continue home medications - Hold any anti-hypertensives due to sepsis - DVT PPx
--- NOTE | 2016-03-01 13:30 | Operative Report ---
Operative/Inv Procedure Report Surgery Date: 03/01/16 Name of Procedure: cystoscopy: right retrograde pyelogram, ureteroscopy, right stent placement-yag laser standby. stp change Pre-Operative Diagnosis: right stone with hydro: spt site cdi Post-Operative Diagnosis: same Estimated Blood Loss: scant Surgeon/Advertising Agency Manager: MD SHAWN, SULEMAN-UROLOGY MD ESTRELLITA, FAUSTO Anesthesia: laryngeal mask airway Urine Output: 20 FR STODDARD SPT Complications: NONE Operative/Procedure Note Note: The patient was taken to the operating room and placed on the OR table in supine position. Timeout was performed, with the patient awake, in order to confirm identity, procedure, antibiotics, anesthesia, and other pertinent information. After adequate anesthesia and antibiotics, the patient was placed in lithotomy stirrups draped and prepped in the usual surgical fashion. A 22 [place]er cystoscope sheath with 30 angle lens was inserted into the urethra without difficulty. Upon entering the bladder, the bladder was noted to be free of tumor, free of stone, with clear reflux from the left ureteral orifice, and no efflux from the right. The suprapubic tube was removed without difficulty. A new 20 [place] Stoddard catheter was inserted into the suprapubic tube site, which was visualized in the bladder via the cystoscope. 10 mL of sterile water was placed into the balloon. The suprapubic tube was attached to the new leg bag. Under direct visualization, the right ureter orifice was intubated with a 5 [place]er open-ended catheter. A retrograde pyelogram, with fluoroscopy was performed. The 9mm filling defect consistent with stone was clearly visible in the lower pole (likely manipulate out of the ureter via the retrograde), with proximal hydroureter, and hydronephrosis. Due to the angle of the LP-stone, the laser fiber on standby was not used at this time. The open-ended stent was then removed, followed by insertion of a 0.035 Glidewire into the right ureteral orifice. The Glidewire was advanced into the right renal pelvis easily, confirmed by fluoroscopy. Over the Glidewire, a 6 x 22 Bard inlay ureteral stent was advanced. With the proximal coil reaching the right renal pelvis, and the distal coil in the bladder, the Glidewire was removed. The stent remained in proper place both cystoscopically, and fluoroscopically. The bladder was then drained, and the cystoscope was removed. The patient tolerated procedure well and will follow-up as outpatient for further plan/procedures. Discharge Disposition: PACU CC: SULEMAN ESCOABR MD
--- NOTE | 2016-03-01 13:55 | RADIOLOGY REPORT ---
EXAMINATION: XR ABDOMEN CLINICAL INDICATION: Retrograde pyelogram in patient with bilateral renal calculi. COMPARISON: CT scan of the abdomen and pelvis dated 02/26/2016. TECHNIQUE: Fluoroscopic C-arm equipment was dedicated to the operating room for the performance of a retrograde pyelogram. 4 spot films were acquired. FLUOROSCOPY TIME: 95.8 seconds. FINDINGS: There is opacification of the renal collecting system. No side marker is in place to identify laterality. There appears to be a filling defect within the right renal pelvis, extending into the right upper pole infundibulum, possibly corresponding to the right-sided calcification seen on prior CT scan. IMPRESSION: Intraoperative fluoroscopy was provided for retrograde pyelogram. Selected limited images are available in PACS for review.
--- NOTE | 2016-03-01 15:59 | Patient Discharge Instructions ---
Discharge Instructions General Discharge Information You were seen/treated for: Urosepsis Ureteric stone on right side, s/p surgery on 03/01/16 You had these procedures: Suprapubic catheter change, Right ureter stent placement, Cystoscopy Watch for these problems: Retention (unable to pass urine) Blood in urine Special Instructions: Please visit your PCP within seven days of discharge. Please visit Dr Stuart Boateng (urologist) within ten days of disacharge, or earlier if required. Please return to emergency if symptoms worsen. Diet Continue normal diet: Yes Recommended Diet: Heart Healthy Activity Full Activity/No Limits: No Activity Self Limited: Yes Acute Coronary Syndrome Inclusion Criteria At DC or during hospital stay patient has or had the following: ACS DIAGNOSIS No Discharge Core Measures Meds if any: Prescribed or Continued at Discharge Meds if any: NOT Prescribed or Continued at Discharge Congestive Heart Failure Inclusion Criteria At DC or during hospital stay patient has or had the following: CHF DIAGNOSIS No Discharge Core Measures Meds if any: Prescribed or Continued at Discharge Meds if any: NOT Prescribed or Continued at Discharge Cerebrovascular accident Inclusion Criteria At DC or during hospital stay patient has or had the following: CVA/TIA Diagnosis No Discharge Core Measures Meds if any: Prescribed or Continued at Discharge Meds if any: NOT Prescribed or Continued at Discharge Venous thromboembolism Inclusion Criteria VTE Diagnosis No VTE Type NONE VTE Confirmed by (Test) NONE Discharge Core Measures - Per Current guidelines, there needs to be overlap - treatment for the first 5 days of Warfarin therapy. - If discharged on Warfarin prior to 5 days of - overlap therapy, the patient will need to be - assessed for post discharge needs including - *Post discharge parental anticoagulation - *Warfarin and/or parental anticoagulation education - *Follow up date to check INR post discharge At least 5 days overlap therapy as Inpatient No Meds if any: Prescribed or Continued at Discharge Note: Overlap Therapy is Warfarin and Anticoagulant Meds if any: NOT Prescribed or Continued at Discharge
[2016-03-01 16:30] VITALS: BP 128/60
[2016-03-01] MEDS ORDERED: AUGMENTIN 875-1 EACH PO (16:49)
[2016-03-01 23:35] VITALS: BP 130/78
[2016-03-02 06:31] VITALS: BP 122/64
--- NOTE | 2016-03-02 06:36 | PN- Housestaff ---
See Addendum Subjective Follow-up For: Sepsis of urological origin Hematuria Altered mental status s/p cyctoscopy, ureteroscopy, right stent placement, suprapubic catheter change Complaints: pt unable to provide hx Subjective: I followed up and examined the patient today. Patient is lying comfortably on the bed, is alert, he is as verbal as he was yesterday, speaking in few words and short sentences. He denies any complaints, but I question his comprehension about the situation. Overnight, there was of question from the nursing staff whether she was still leaking urine from his penis, despite having a suprapubic catheter in place. On examination, I found very minimal leakage, and the diaper was changed three hours ago. Review of Systems Constitutional: Reports: no symptoms. EENTM: Reports: no symptoms. Cardiovascular: Reports: no symptoms. Respiratory: Reports: no symptoms. Gastrointestinal: Reports: no symptoms. Genitourinary: Reports: no symptoms. Musculoskeletal: Reports: no symptoms. Skin: Reports: no symptoms. Neurological/Psychological: Reports: no symptoms. Hematologic/Endocrine: Reports: no symptoms. Objective Last 24 Hrs of Vital Signs/I&O Vital Signs Date Time Temp Pulse Resp B/P Pulse O2 O2 Flow FiO2 Ox Delivery Rate 03/02 0631 98.3 80 20 122/64 94 Room Air 03/01 2335 96.3 52 20 130/78 91 Room Air 03/01 1630 64 128/60 93 03/01 1449 Room Air Intake & Output 03/02 1600 03/02 0800 03/02 0000 Intake Total 660 270 Output Total 350 325 Balance 310 -55 Intake, IV 300 150 Intake, Oral 360 120 Number 1 Bowel Movements Output, Urine 350 325 Physical Exam General Appearance: Alert, Cooperative, No Acute Distress Other Physical Findings: Physical examnination: General: well nourished patient not in distress, more verbal today Head: Normocephalic, atraumatic Eyes: Pupils normal in size, regular, reacting to light and accommodation, EOM normal Ears: B/l normal on inspection Nose: Normal on inspection Throat/mouth: Moist mucosa Neck: Supple, full range of motion, no thyromegaly Heart: Regular rate, regular rhythm Lung: Normal breath sound bilaterally Added sound not heard Abd: Soft, non-tender, no distention appreciated, NEW SUPRAPUBIC CATHETER IN PLACE WITHOUT LEAKAGE OR SURROUNDING LEAKAGE, no bleeding/leakage from urethral meatus, Jacqueline colored urine collected in the uro-bag from suprapubic cath. Back: Normal range of motion Extremities: Increased tone of b/l extermities (not new), Normal knee exam bilaterally, no pedal edema, Distal neurovascular intact Neurologic: Alert, oriented x3, Cranial exam grossly intact, Speech is clear and coherent Skin: Warm and dry Psychiatric: Calm, DEMENTED, BUT MORE VERBAL THAN YESTERDAY, better than 2 days ago (yesterday was partially verbal too), uttering few words intermittantly Current Medications: Current Medications Sig/Travis Start time Last Medication Dose Route Stop Time Status Admin Acetaminophen 1,000 MG Q6P PRN 02/26 1200 AC 02/27 N/A 1 UNIT IV 0023 Ampicillin Sodium/ 3,000 MG Q6 03/01 1800 AC 03/02 Sulbactam Sodium IV 0437 Sodium Chloride 100 ML Baclofen 5 MG DAILY 02/28 1844 AC 03/01 PO 0854 Dextrose/Sodium 1,000 ML Q13H 03/01 0845 DC 03/01 Chloride IV 0852 Escitalopram Oxalate 10 MG DAILY 03/01 1000 AC 03/01 PO 0854 Fentanyl Citrate 100 MCG .STK-MED ONE 03/01 1112 DC IM 03/01 1113 Midazolam HCl 2 MG .STK-MED ONE 03/01 1112 DC IM 03/01 1113 Morphine Sulfate 1 MG Q4P PRN 02/26 1400 AC 03/02 IV 0437 Ondansetron HCl 4 MG .STK-MED ONE 03/01 1112 DC IM 03/01 1113 Vancomycin HCl 1,000 MG BID 02/27 1000 DC 03/01 Sodium Chloride 250 ML IV 1111 Last 24 Hrs of Lab/Yossi Results Last 24 Hrs of Labs/Mics: Laboratory Tests 03/02/16 0705: Sodium Pending, Potassium Pending, Chloride Pending, Carbon Dioxide Pending, Anion Gap Pending, BUN Pending, Creatinine Pending, BUN/Creatinine Ratio Pending , CBC w Diff Pending, WBC Pending, RBC Pending, Hgb Pending, Hct Pending, MCV Pending, MCH Pending, RDW Pending, Plt Count Pending, MPV Pending, PUBS MCHC Pending Assessment/Plan Assessment: 60 yo M with past medical history of Lewy body dementia, neurogenic bladder/ urinary retention/status post suprapubic catheter, depression, referred from [facility] who came with 1 day history of lethargy, fever and altered mental status, and blood in the uro-bag. He was febrile at the emergency department with temperature 102.2, tachycardic, and there was no urine output in the suprapubic uro-bag. A Villa catheter was placed which drained thick, cloudy, blood-tinged urine, and some some blood was seen at the tip of the urethral meatus. Is currently being managed in the general medical floor for the following issues : #Sepsis of urological origin, better now The patient's baseline condition had deteriorated, and was having fever with tachycardia, low urine output and labs showed leucocytosis, with 25-50 WBCs/hpf in urine examination, confirming the diagnosis of urinary tract infection with sepsis. His overall condition seems to be improving. -Pain meds modified to Morphine 1mg q4PRN from q6PRN. -Blood culture growing Gram positive cocci in clusters, Staph aureus, sensitive to ampicillin. Other antibiotics stopped and patient placed on Unasyn. MRSA screening was negative. #Right ureteric stone, s/p stent placement and new suprapubic catheter placement on 03/01/16 -Patient underwent surgical procedure yesterday successfully, with Dr. Boateng. Suprapubic catheter is in place, draining clear urine. Urethral meatus is normal , not leaking urine or blood. Can be discharged per surgery with outpatient followup. #Acute kidney injury, secondary to dehydration and urinary tract infection -IV fluids stopped and the patient is drinking and eating normally with assist. -Creatinine is already coming down from 1.5-to 0.8. Today's lab pending. #Lewy body dementia #Diet: Regular diet with assistance, has passed swallow eval #DVT prophylaxis by Alps #CODE STATUS: Do not resuscitate/Do not intubate Problem List: 1. Sepsis 2. Hematuria 3. Suprapubic catheter Pain Ratin Pain Location: - Pain Goal: Remain pain free Pain Plan: MORPHINE PRN Tomorrow's Labs & Rationales: -, DISCHARGING HIM TODAY
[2016-03-02 08:35] LABS: ABSOLUTE BASOPHIL COUNT 0 /CUMM (0.0-0.2); ABSOLUTE EOSINOPHIL COUNT 0.1 /CUMM (0.0-0.7); ABSOLUTE GRANULOCYTE CT 2.6 /CUMM (1.4-6.5); ABSOLUTE MONOCYTE COUNT 0.6 /CUMM (0.10-0.60); MEAN PLATELET VOLUME 7.7 FL (7.4-10.4); RBC DISTRIBUTION WIDTH 14.2 % (11.5-14.5)
[2016-03-02 08:44] LABS: BASOPHIL % 0.5 % (0.0-2.0); EOSINOPHIL % 2.6 % (0-5); GRANULOCYTE % 48.4 % (42.2-75.2); HEMATOCRIT 31.7 % (42-52); MEAN CORPUSCULAR VOLUME 88.4 FL (80.0-94.0); RED BLOOD CELL CT 3.59 /CUMM (4.70-6.10); WHITE BLOOD CELL COUNT 5.4 /CUMM (4.8-10.8)
[2016-03-02 08:47] LABS: PLATELET COUNT 206 /CUMM (130-400)
[2016-03-02 14:12] VITALS: BP 120/80
--- NOTE | 2016-03-02 15:58 | PN- Urology ---
Surgical Brief Attending Note Brief Attending Note: Pt appears comfortable. vss afebrile. spt site C/D/I. recovering well overall. likely dc home in a few days as per medicine.
[2016-03-02 22:57] VITALS: BP 120/60
[2016-03-03 06:23] VITALS: BP 120/68
--- NOTE | 2016-03-03 07:32 | PN- Housestaff ---
JESSICA BORGES,NELLY 03/03/16 0732: Subjective Follow-up For: Urosepsis, right ureteral stone, status post right ureteral stent placement Complaints: pt unable to provide hx Subjective: I examined the patient today. The patient is lying comfortably on the bed, not in any acute distress, does not have any complaints, vitals have been stable overnight, no active issues. Review of Systems Constitutional: Reports: no symptoms. Cardiovascular: Reports: no symptoms. Respiratory: Reports: no symptoms. Gastrointestinal: Reports: no symptoms. Genitourinary: Reports: no symptoms. Objective Last 24 Hrs of Vital Signs/I&O Vital Signs Date Time Temp Pulse Resp B/P Pulse O2 O2 Flow FiO2 Ox Delivery Rate 03/03 1535 98.0 63 20 120/70 03/03 1524 98.0 63 20 120/70 97 03/03 0800 Room Air 03/03 0623 97.9 60 20 120/68 95 Room Air 03/02 2257 97.4 63 20 120/60 95 Room Air Intake & Output 03/03 1600 03/03 0800 03/03 0000 Intake Total 1150 200 50 Output Total 006 326 0590 Balance 300 -250 -1300 Intake, IV 200 200 Intake, Oral 900 50 Intake, Other 50 Number 2 2 1 Bowel Movements Output, Urine [phone] Physical Exam General Appearance: Alert, Cooperative, No Acute Distress Lymphatic: Cervical nl Cardiovascular: Regular Rate, Normal S1, Normal S2 Lungs: Clear to Auscultation, Normal Air Movement Abdomen: Normal Bowel Sounds, Soft, No Tenderness, suprapubic catheter in place, draining philipp colored urine Neurological: no change since yesterday Current Medications: Current Medications Sig/Travis Start time Last Medication Dose Route Stop Time Status Admin Acetaminophen 1,000 MG Q6P PRN 02/26 1200 AC 03/03 N/A 1 UNIT IV 1449 Ampicillin Sodium/ 3,000 MG Q6 03/01 1800 AC 03/03 Sulbactam Sodium IV 1200 Sodium Chloride 100 ML Baclofen 5 MG DAILY 02/28 1844 AC 03/03 PO 0753 Escitalopram Oxalate 10 MG DAILY 03/01 1000 AC 03/03 PO 0753 Morphine Sulfate 1 MG Q4P PRN 02/26 1400 AC 03/03 IV 1304 Assessment/Plan Assessment: 60 yo M with past medical history of Lewy body dementia, neurogenic bladder/ urinary retention/status post suprapubic catheter, depression, referred from [facility] who came with 1 day history of lethargy, fever and altered mental status, and blood in the uro-bag. He was febrile at the emergency department with temperature 102.2, tachycardic, and there was no urine output in the suprapubic uro-bag. A Villa catheter was placed which drained thick, cloudy, blood-tinged urine, and some some blood was seen at the tip of the urethral meatus. Patient can be safely discharged to [facility], with suprapubic catheter in place. A follow-up with urology has been requested. Is currently being managed in the general medical floor for the following issues : #Sepsis of urological origin, better now The patient's baseline condition had deteriorated, and was having fever with tachycardia, low urine output and labs showed leucocytosis, with 25-50 WBCs/hpf in urine examination, confirming the diagnosis of urinary tract infection with sepsis. His overall condition seems to be improving. -Pain meds modified to Morphine 1mg q4PRN from q6PRN. -Blood culture growing Gram positive cocci in clusters, Staph aureus, sensitive to ampicillin. Other antibiotics stopped and patient placed on Unasyn. MRSA screening was negative. #Right ureteric stone, s/p stent placement and new suprapubic catheter placement on 03/01/16 -Patient underwent surgical procedure yesterday successfully, with Dr. Boateng. Suprapubic catheter is in place, draining clear urine. Urethral meatus is normal , not leaking urine or blood. Can be discharged per surgery with outpatient followup. #Acute kidney injury, secondary to dehydration and urinary tract infection -IV fluids stopped and the patient is drinking and eating normally with assist. -Creatinine is already coming down from 1.5-to 0.8. #Lewy body dementia #Diet: Regular diet with assistance, has passed swallow eval #DVT prophylaxis by Alps #CODE STATUS: Do not resuscitate/Do not intubate Problem List: 1. Sepsis 2. Suprapubic catheter 3. History of ureter stent Pain Ratin Pain Location: - Pain Goal: Remain pain free Pain Plan: Morphine when necessary Tomorrow's Labs & Rationales: -, Patient being discharged today GORDO KIRBY MD 03/03/16 1609: Attending MD Review Statement Attending Statement Attending MD Statement: examined this patient, discuss w/resident/PA/REC THERAPIST, agreed w/resident/PA/REC THERAPIST, reviewed EMR data (avail) Attending Assessment/Plan: 60M PMH Lewy Body dementia, neurogenic bladder with chronic suprapubic catheter brought in from skilled nursing facility for fever and confusion. Febrile 103 on admission with normal BP, WBC 14 initially but improved to 7. Ceftriaxone started in ED. Urine culture growing staph aureus. Improved on Ceftazidime, Vancomycin started on 02/27 after GPC grew in blood. Patient continues to improve. He is comfortable, awake, and alert with no complaints. Still confused but at his baseline. 1. Methicillin-sensitive Staph aureus sepsis secondary to UTI 2. Toxic encephalopathy 3. Lewy Body dementia 4. Chronic suprapubic catheter Plan - Stable for [facility] to [facility] - Underwent cystoscopy and stenting, doing well, suprapubic catheter in place - Continue Augmentin to complete 14 day course - Continue home medications - Outpatient follow up with urology and PCP
[2016-03-03] MEDS ORDERED: PERCOCET 5-3251 EACH PO (12:57)
[2016-03-03 15:24] VITALS: BP 120/70
[2016-03-03 15:35] VITALS: BP 120/70
[2016-03-13] MEDS ORDERED: LORAZEPAM0.5 M1 PO (15:16)
[2016-03-13] MEDS ORDERED: TRAMADOL HCL50 M1 PO (15:17)
[2016-03-13] MEDS ORDERED: VITAMIN D250000 UNIT PO (15:18)
[2016-03-13] MEDS ORDERED: ONDANSETRON HCL4 MG PO (15:20)
== END 2016-03-03 16:45 | DRG 871 ==
LOC: ERH 11:24 → ERHI 13:55 → 2NA 13:55
PROVIDERS: Internal Medicine; Physician Assistant Medical; ADMIT Internal Medicine
DX: A41.50 Gram-negative sepsis, unspecified (principal); G92 Toxic encephalopathy; N17.9 Acute kidney failure, unspecified; G31.83 Neurocognitive disorder with Lewy bodies; N31.9 Neuromuscular dysfunction of bladder, unspecified; N13.6 Pyonephrosis; N12 Tubulo-interstitial nephritis, not specified as acute or chronic; N20.0 Calculus of kidney; F02.80 Dementia in other diseases classified elsewhere, unspecified severity, without behavioral disturbance, psychotic disturbance, mood disturbance, and anxiety; R33.9 Retention of urine, unspecified; F32.9 Major depressive disorder, single episode, unspecified
CPT/HCPCS: 2NAP; 2NASP; 87184; 36415; 74000; 81001; 82436; 87040; 87070; 87086; 87147; 93005; 93010; 96365; 96375; 96376; 99291; C2617; J0131; J0696; J0713; J1644; J2405; J3360; J3370; J7040; J7042

== ENCOUNTER → 2016-03-13 | Day surgery (SDC) | payer OTHER ==
[~2016-03-13] VITALS: Ht 165.1 cm; Wt 68.0 kg
[~2016-03-13] MED LIST changes: +ARTIFICIAL TEAR15 M4 OPH; +BACLOFEN10 M1 PO; +CLARITIN10 M1 PO; +LEXAPRO10 M1 PO; +LORAZEPAM0.5 M1 PO; +ONDANSETRON HCL4 MG PO; +PERCOCET 5-3251 EACH PO; +ROBITUSSIN COU118 M1 PO; +SENNA8.6 M3 PO; +TRAMADOL HCL50 M1 PO; +TRAZODONE HCL50 M1 PO
--- NOTE | 2016-03-13 11:23 | Operative Report ---
Operative/Inv Procedure Report Surgery Date: 03/13/16 Name of Procedure: right renal ESWL. Fluoroscopy. SPT change. Pre-Operative Diagnosis: right stone Post-Operative Diagnosis: same Estimated Blood Loss: scant Surgeon/Mathematics Lecturer: SULEMAN ESCOBAR MD Anesthesia: moderate sedation Drains: new 20 fr anand/10cc balloon used as spt. Complications: none Operative/Procedure Note Note: The patient was taken to the operating room and placed on the ESWL table in supine position. The patient's right flank was positioned over the table cut- out overlying the dome of the treatment head. Timeout was performed, with the patient awake, in order to confirm the correct identity, side, anesthesia, procedure and other pertinent silvestre-operative information. The patient was then anesthesized. Once the patient was adequately sedated, fluoroscopy, as well as Renal ultrasound was used to locate the right renal stone. Renal US was used to confirm the placement of the stone, and measured it to be approximately 8 mm in size at the right renal pelvis. Additionally, renal U/S revealed no hydronephrosis (with the stent in place), and no solid tumor. With the stone's position optimized, using AP and oblique fluoroscopy views, the right renal E.S.W.L. was initiated at low energy level. After noting the patient's tolerance to the shockwaves, the intensitiy was ramped up to maximum level. A total of 2500 shockwaves were delivered to the stone resulting in a significant change in its appearance consistent with shattering of the stone. At the end of the procedure, the composition of the right renal stone had changed significantly, indicating the shattering of the renal stone. The old SPT was deflated and removed. The site was then prepped with betadine. A new 20fr/10cc anand was inserted into the bladder via the well matured spt site without difficulty. The patient tolerated the ESWL procedure well, was awakened, then taken to recovery in satisfactory condition via stretcher. The patient was dischared home with pain medications, diet orders, and intructions to catch fragments by straining the urine. The patient to to have follow-up renal ultrasound and KUB in 1 to 2 weeks, prior to follow-up visit in my office. Findings: 8mm right renal pelvis stone shattered at 2500. spt site c/d/i Discharge Disposition: PACU CC: SHAWN BORGES,SULEMAN
== END ==
LOC: STS 01:55
DX: N20.0 Calculus of kidney (principal); N31.9 Neuromuscular dysfunction of bladder, unspecified; G31.83 Neurocognitive disorder with Lewy bodies; F02.80 Dementia in other diseases classified elsewhere, unspecified severity, without behavioral disturbance, psychotic disturbance, mood disturbance, and anxiety; R33.9 Retention of urine, unspecified
CPT/HCPCS: J2250

== ENCOUNTER → 2016-04-17 | Day surgery (SDC) | payer OTHER ==
[~2016-04-17] VITALS: Ht 165.1 cm; Wt 75.3 kg
--- NOTE | 2016-04-17 17:23 | Operative Report ---
Operative/Inv Procedure Report Surgery Date: 04/17/16 Name of Procedure: cystoscopy: SP-tube change: right stent removal Pre-Operative Diagnosis: right stent: spt-old Post-Operative Diagnosis: same Estimated Blood Loss: scant Surgeon/Plant Production Worker: SULEMAN ESCOBAR MD Anesthesia: moderate sedation Drains: 18 fr anand used as SPT Specimens: right stent Complications: none Operative/Procedure Note Note: The patient was taken to the operative room and placed on the OR table in supine position. Timeout was performed in order to confirm the patient's identity, procedure, anesthesia, antibiotics, as well as any other pertinent information. After adequate anesthesia, and antibiotics, the patient was then placed lithotomy stirrups draped and prepped in the usual surgical fashion. A 22 Faroese cystoscope sheath with a 30 angle lens was inserted into the urethra and advanced into the bladder without difficulty. The bladder was noted to have the findings as discussed above. The bladder was then hydrodistended 2 with the irrigation fluid at 40 cm above the symphysis pubis. No evidence of tumor, increased petechiae, nor Hunner's ulceration was noted. The right stent was grasped with an alligator forcep and removed intact along with the cystoscope. With the bladder full, the old SPT tube was deflated and extracted. A new 18 fr anand was inserted into the well-healed SPT site which drained copious amount of clear fluied upon entering the bladder. 10cc of sterile water was then used to inflate the balloon. The pt. tolerated both procedures well, and taken to the RR in satisfactory condition. Discharge Disposition: PACU CC: SULEMAN ESCOBAR MD
== END ==
LOC: STS 03:14
DX: Z46.6 Encounter for fitting and adjustment of urinary device (principal); N31.9 Neuromuscular dysfunction of bladder, unspecified; G31.83 Neurocognitive disorder with Lewy bodies; F02.80 Dementia in other diseases classified elsewhere, unspecified severity, without behavioral disturbance, psychotic disturbance, mood disturbance, and anxiety; J96.00 Acute respiratory failure, unspecified whether with hypoxia or hypercapnia
CPT/HCPCS: J0696; J2250

== ENCOUNTER 2016-06-09 02:03 | Emergency (ER) | payer OTHER ==
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
[2016-06-09 03:17] LABS: ABSOLUTE BASOPHIL COUNT 0 /CUMM (0.0-0.2); ABSOLUTE EOSINOPHIL COUNT 0.1 /CUMM (0.0-0.7); ABSOLUTE GRANULOCYTE CT 8.5 /CUMM (1.4-6.5); ABSOLUTE MONOCYTE COUNT 0.6 /CUMM (0.10-0.60); BASOPHIL % 0.1 % (0.0-2.0); EOSINOPHIL % 0.6 % (0-5); GRANULOCYTE % 83.4 % (42.2-75.2); HEMATOCRIT 37.8 % (42-52); MEAN CORPUSCULAR HGB CONC 32.8 G/DL (33.0-37.0); MEAN CORPUSCULAR VOLUME 85.3 FL (80.0-94.0); MEAN PLATELET VOLUME 7.4 FL (7.4-10.4); PLATELET COUNT 174 /CUMM (130-400); RED BLOOD CELL CT 4.43 /CUMM (4.70-6.10); WHITE BLOOD CELL COUNT 10.2 /CUMM (4.8-10.8)
--- NOTE | 2016-06-09 05:46 | CT SCAN REPORT ---
EXAMINATION: CT ABDOMEN AND PELVIS WITH CONTRAST CLINICAL INFORMATION: Abdominal pain after cystostomy. Tube replaced. COMPARISON: CT scan of the abdomen and pelvis 02/26/2016. TECHNIQUE: Multidetector volumetric imaging was performed of the abdomen and pelvis before and after the IV administration of 95 mL of Optiray 320 intravenous contrast. Sagittal and coronal reformatted images were obtained on the technologist's workstation. DLP: 1886.56 mGy-cm FINDINGS: LUNG BASES: There is bibasilar subsegmental atelectasis. No pleural or pericardial effusion. LIVER, GALLBLADDER, AND BILIARY TREE: Liver attenuation is homogeneous and there is no evidence of a discrete hepatic parenchymal mass. The gallbladder is normal. No intrahepatic or extrahepatic biliary ductal dilatation. PANCREAS: Unremarkable. SPLEEN: Unremarkable. ADRENAL GLANDS: Unremarkable. KIDNEYS AND URETERS: The kidneys demonstrate symmetric corticomedullary enhancement. There are numerous nonobstructive calculi within both kidneys. For instance there is an elongated 0.9 cm calculus within an upper pole calyx of the right kidney best illustrated on axial image 28 of 112 series 2. In the left kidney there are 2 adjoining nonobstructive calculi layering within the renal pelvis measuring 0.5 cm and a 0.4 cm in length best illustrated on axial image 35 of 112 series 2. A few additional smaller nonobstructing calculi are visualized within the calyces of both kidneys. There is mild stranding along the course of the right ureter and there is a 0.3 cm calculus located within the distal right ureter 4 cm proximal to the ureterovesicular junction. No abnormal calcification along the expected course of the left ureter. BLADDER: There is a suprapubic catheter located within the urinary bladder is decompressed. There is nonspecific thickening of the urinary bladder wall. GASTROINTESTINAL TRACT: There is a small hiatal hernia. The stomach and small bowel are otherwise unremarkable. There is no free intraperitoneal air or fluid. A few small diverticula are visualized within the distal colon. No evidence of acute diverticulitis. The appendix is normal. ABDOMINAL WALL: Abdominal wall is intact and there is no evidence of hernia. LYMPH NODES: No pathologically enlarged mesenteric or retroperitoneal lymph nodes. VASCULAR: The abdominal aorta and inferior vena cava are unremarkable. PELVIC VISCERA: The prostate gland is unremarkable. OSSEOUS STRUCTURES: There is no acute osseous finding. Specifically no worrisome lytic or blastic osseous lesion. IMPRESSION: There is a 0.3 cm calculus within the distal right ureter located 4 cm proximal to the right ureterovesicular junction and there is associated retroperitoneal inflammatory stranding along the course of the right ureter. There is no evidence of overt hydronephrosis to suggest obstruction at this time. There are 2 prominent adjoining calculi within the pelvis of the left kidney measuring 0.5 cm and 0.4 cm in diameter. There is a 0.9 cm calculus within an upper pole calyx of the right kidney. A few additional nonobstructive calculi are visualized within both kidneys. A suprapubic catheter is in place. The urinary bladder is decompressed and there is nonspecific circumferential thickening of the bladder wall.
[2016-06-09 06:28] VITALS: BP 129/74
== END 2016-06-09 07:28 ==
LOC: ERH 02:03
PROVIDERS: Emergency Medicine
DX: T83.028A Displacement of other urinary catheter, initial encounter (principal)
CPT/HCPCS: 74177; 81001; 87086

== ENCOUNTER 2016-06-28 05:06 | Emergency (ER) | payer OTHER ==
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
[2016-06-28 07:40] VITALS: BP 100/70
== END 2016-06-28 08:07 ==
LOC: ERH 05:06
DX: Z43.6 Encounter for attention to other artificial openings of urinary tract (principal)

== ENCOUNTER 2016-08-12 03:03 | Emergency (ER) | payer OTHER ==
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
[2016-08-12 05:45] VITALS: BP 110/65
== END 2016-08-12 05:53 ==
LOC: ERH 03:03
DX: Z43.6 Encounter for attention to other artificial openings of urinary tract (principal)
CPT/HCPCS: 93005; 93010; 96372

== ENCOUNTER 2017-02-12 14:19 | Inpatient (IN) | payer OTHER ==
[~2017-02-12] VITALS: Ht 167.6 cm; Wt 65.8 kg
[~2017-02-12 14:19] MED LIST changes: +ACEPHEN650 M1 RC; +ACETAMINOPHEN325 M2 PO; -ARTIFICIAL TEAR15 M4 OPH; +ARTIFICIAL TEAR15 M4 OU; +ATIVAN0.5 M1 PO; +BISACODYL10 M1 RC; +CEFTRIAXONE1 G1 IV; +FLEET ENEMA133 ML RC; +METRO IV 5500 MG/100 IV; +MILK OF MA400 MG/52 PO; +MORPHINE S20 MG/1 ML SL; +RESOURCE 2.0237 ML PO; +SENNA8.8 MG/51 PO
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
[2017-02-12 15:47] LABS: ABSOLUTE BASOPHIL COUNT 0 /CUMM (0.0-0.2); ABSOLUTE EOSINOPHIL COUNT 0.3 /CUMM (0.0-0.7); ABSOLUTE GRANULOCYTE CT 8.1 /CUMM (1.4-6.5); ABSOLUTE LYMPH COUNT 3.4 /CUMM (1.2-3.4); ABSOLUTE MONOCYTE COUNT 1.1 /CUMM (0.10-0.60); BASOPHIL % 0.3 % (0.0-2.0); EOSINOPHIL % 2.1 % (0-5); GRANULOCYTE % 63.2 % (42.2-75.2); HEMATOCRIT 39.3 % (42-52); MEAN CORPUSCULAR HGB 29.4 PG (27.0-31.0); MEAN CORPUSCULAR HGB CONC 33.1 G/DL (33.0-37.0); MEAN PLATELET VOLUME 7.5 FL (7.4-10.4); PLATELET COUNT 302 /CUMM (130-400); RBC DISTRIBUTION WIDTH 15.3 % (11.5-14.5); RED BLOOD CELL CT 4.41 /CUMM (4.70-6.10); WHITE BLOOD CELL COUNT 12.9 /CUMM (4.8-10.8)
--- NOTE | 2017-02-12 15:51 | RADIOLOGY REPORT ---
EXAMINATION: XR PORTABLE CHEST CLINICAL INFORMATION: Fever. COMPARISON: Chest x-ray 01/09/2017 TECHNIQUE: Portable frontal view of the chest was obtained. 3:06 PM FINDINGS: No significant abnormality is noted involving the heart, lungs, mediastinum, bony thorax or soft tissues. IMPRESSION: No acute abnormality of the chest.
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
[2017-02-12 23:11] VITALS: BP 110/74
--- NOTE | 2017-02-13 01:22 | CT SCAN REPORT ---
CT ABDOMEN AND PELVIS WITHOUT CONTRAST CLINICAL INFORMATION: Fever and chills. History of nephrostomy tube. COMPARISON: Abdominal CT January 17, 2017. TECHNIQUE: Multidetector volumetric imaging was performed from the superior aspect of the liver through the pubic symphysis. Sagittal and coronal reformatted images were obtained on the technologist's workstation. FINDINGS: Mild dependent atelectasis at the lung bases. Limited evaluation of the unenhanced liver, spleen, adrenal glands, gallbladder, and pancreas reveals no definite abnormality. Redemonstrated right-sided percutaneous nephrostomy tube and bilateral nephroureteral stent placement. Stable positioning of the devices when compared to the prior study. The bladder is decompressed with a suprapubic catheter in place. A large calculus within the left renal pelvis measuring up to 1.1 cm in size is stable as is a 5 mm calculus adjacent to the left ureteral stent on image 54 of series 2. A large radiopaque renal calculus within the right renal pelvis also is unchanged in appearance, measuring up to 1.6 cm in size. Multiple additional calculi within the left and right kidney are similar to the prior examination. There is no new dilatation of the renal collecting systems or ureters. Large volume intracolonic stool. The large and small bowel are normal in caliber without evidence of mechanical obstruction. No focal inflammatory changes adjacent to the large or the small bowel. The appendix is normal. There is no free air and there is no intra-abdominal free fluid. No mesenteric or retroperitoneal adenopathy. The pelvic viscera are normal. No pelvic adenopathy. No free fluid within the pelvis. There are no acute osseous abnormalities. Thoracolumbar degenerative changes are stable. Severe degenerative changes involving the right femoral acetabular joint. Fat-containing inguinal hernias bilaterally. IMPRESSION: - Redemonstrated postoperative changes following placement of a right percutaneous nephrostomy tube and bilateral nephroureteral stents, the position of which remains unchanged in comparison to the previous study. Stable appearance of large calculi within the right and left renal pelvis as well as a calculus within the left ureter adjacent to the left ureteral stent. There is no new dilatation of the renal collecting systems. Mild dilatation of the distal left ureter is stable. The bladder remains decompressed with a suprapubic catheter in place. - Large volume intracolonic stool. No bowel obstruction.
[2017-02-13 06:31] VITALS: BP 100/62
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
[2017-02-13 09:20] LABS: ABSOLUTE BASOPHIL COUNT 0 /CUMM (0.0-0.2); ABSOLUTE EOSINOPHIL COUNT 0.2 /CUMM (0.0-0.7); ABSOLUTE GRANULOCYTE CT 7.3 /CUMM (1.4-6.5); ABSOLUTE LYMPH COUNT 2.4 /CUMM (1.2-3.4); ABSOLUTE MONOCYTE COUNT 0.7 /CUMM (0.10-0.60); BASOPHIL % 0.3 % (0.0-2.0); EOSINOPHIL % 1.5 % (0-5); GRANULOCYTE % 68.8 % (42.2-75.2); MEAN CORPUSCULAR HGB 30.1 PG (27.0-31.0); MEAN CORPUSCULAR HGB CONC 33.6 G/DL (33.0-37.0); MEAN CORPUSCULAR VOLUME 89.8 FL (80.0-94.0); MEAN PLATELET VOLUME 8.4 FL (7.4-10.4); PLATELET COUNT 236 /CUMM (130-400); RBC DISTRIBUTION WIDTH 15.4 % (11.5-14.5); RED BLOOD CELL CT 4.13 /CUMM (4.70-6.10); WHITE BLOOD CELL COUNT 10.6 /CUMM (4.8-10.8)
--- NOTE | 2017-02-13 09:27 | Admission Certification ---
Admission Certification Certification Statement - As attending physician, I certify that at the time of - admission, based on clinical presentation, severity of - symptoms, need for further diagnostic testing and - therapeutic interventions, and risk of adverse outcomes - without in-hospital treatment, in my clinical assessment, - this patient requires an acute hospital stay for a minimum - of two nights or longer. I have also considered psychsocial - factors such as support system, advanced age, financial - issues, cognitive issues, and failed out-patient treatments, - past re-admission history, safety of patient, and lack of - compliance as applicable. Specific rationale supporting this admission is: Nephrolithiasis, with suspected urinary infection.
--- NOTE | 2017-02-13 10:30 | Patient Discharge Instructions ---
Discharge Instructions General Discharge Information You were seen/treated for: Hypernatremia secondary to Dehydration Possible urinary tract infection, w/ prev micro of Proteus Lewy body dementia Special Instructions: - Please follow up with your urologist Dr. Boateng in 6-8 weeks for treatment of kidney stone in right kidney and removal of stent in left kidney. - Please follow up with your primary care physician within 1-2 week of discharge. Inform your primary care physician of this admission to [facility]. - Continue your current medications per discharge instructions. - Please watch for these problems: Fever, Chills, Nausea, Vomiting, Shortness of Breath, Productive Cough, Chest Pain/Discomfort, Abdominal Pain, Active Bleeding or Bloody urine/stool. Diet Continue normal diet: Yes Recommended Diet: Heart Healthy Activity Full Activity/No Limits: Yes Acute Coronary Syndrome Inclusion Criteria At DC or during hospital stay patient has or had the following: ACS DIAGNOSIS No Discharge Core Measures Meds if any: Prescribed or Continued at Discharge Meds if any: NOT Prescribed or Continued at Discharge Congestive Heart Failure Inclusion Criteria At DC or during hospital stay patient has or had the following: CHF DIAGNOSIS No Discharge Core Measures Meds if any: Prescribed or Continued at Discharge Meds if any: NOT Prescribed or Continued at Discharge Cerebrovascular accident Inclusion Criteria At DC or during hospital stay patient has or had the following: CVA/TIA Diagnosis No Discharge Core Measures Meds if any: Prescribed or Continued at Discharge Meds if any: NOT Prescribed or Continued at Discharge Venous thromboembolism Inclusion Criteria VTE Diagnosis No VTE Type NONE VTE Confirmed by (Test) NONE Discharge Core Measures - Per Current guidelines, there needs to be overlap - treatment for the first 5 days of Warfarin therapy. - If discharged on Warfarin prior to 5 days of - overlap therapy, the patient will need to be - assessed for post discharge needs including - *Post discharge parental anticoagulation - *Warfarin and/or parental anticoagulation education - *Follow up date to check INR post discharge At least 5 days overlap therapy as Inpatient No Meds if any: Prescribed or Continued at Discharge Note: Overlap Therapy is Warfarin and Anticoagulant Meds if any: NOT Prescribed or Continued at Discharge
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
[2017-02-13 14:31] VITALS: BP 130/70
[2017-02-13 22:59] VITALS: BP 126/80
[2017-02-14 05:58] VITALS: BP 114/70
[2017-02-14 06:33] VITALS: BP 90/50
[2017-02-14 08:03] VITALS: BP 123/90
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
[2017-02-14 09:47] LABS: ABSOLUTE BASOPHIL COUNT 0 /CUMM (0.0-0.2); ABSOLUTE EOSINOPHIL COUNT 0.2 /CUMM (0.0-0.7); ABSOLUTE GRANULOCYTE CT 3.3 /CUMM (1.4-6.5); ABSOLUTE LYMPH COUNT 2.5 /CUMM (1.2-3.4); ABSOLUTE MONOCYTE COUNT 0.6 /CUMM (0.10-0.60); BASOPHIL % 0.4 % (0.0-2.0); EOSINOPHIL % 2.9 % (0-5); GRANULOCYTE % 49.8 % (42.2-75.2); HEMATOCRIT 32.4 % (42-52); MEAN CORPUSCULAR HGB 30.1 PG (27.0-31.0); MEAN CORPUSCULAR HGB CONC 33.8 G/DL (33.0-37.0); MEAN PLATELET VOLUME 7.7 FL (7.4-10.4); PLATELET COUNT 248 /CUMM (130-400); RBC DISTRIBUTION WIDTH 15.4 % (11.5-14.5); RED BLOOD CELL CT 3.65 /CUMM (4.70-6.10); WHITE BLOOD CELL COUNT 6.7 /CUMM (4.8-10.8)
[2017-02-14 14:15] VITALS: BP 120/88
--- NOTE | 2017-02-14 14:54 | RADIOLOGY REPORT ---
EXAMINATION: XR ABDOMEN CLINICAL INDICATION: Left ureteral stent exchange, ureteroscopy and lithotripsy. COMPARISON: CT images of the abdomen from 02/12/2017. TECHNIQUE: Intraoperative fluoroscopic imaging was utilized for performance of urologic procedures by Dr. Boateng. Number of saved images: 12. Fluoroscopy time: 32.4 seconds. Dose: 746.78 mrad. FINDINGS: This was not a diagnostic examination. Fluoroscopic imaging was required by Dr. Boateng, who reportedly performed ureteroscopy, lithotripsy and stent exchange. Please refer to the operative report. IMPRESSION: Postoperative imaging support provided to the operating room.
[2017-02-14 21:40] VITALS: BP 110/68
[2017-02-14 23:12] VITALS: BP 100/64
[2017-02-15 07:23] VITALS: BP 110/74
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
--- NOTE | 2017-02-15 09:57 | Operative Report ---
Operative/Inv Procedure Report Surgery Date: 02/14/17 Name of Procedure: cystoscopy, left stent exchange, left flexible ureteroscopy with laser lithotrypsy of renal pelvis stone, retrograde pyelogram, fluroroscopy; Change of suprapubic tube. Pre-Operative Diagnosis: bilat. staghorn calculus, and bilat. stents. Post-Operative Diagnosis: same Estimated Blood Loss: scant Surgeon/Yard Jockey: MD Kilo, [place] Anesthesia: laryngeal mask airway Drains: new 18 fr. SPT. Specimens: Left stone and old left stent. Complications: None Operative/Procedure Note Note: The patient was taken to the operating room and placed on the OR table in supine position. Timeout was performed, with the patient awake, in order to confirm correct patient, procedure, laterality, and other pertinent silvestre-operative information. After adequate anesthesia and antibiotics, the patient was then placed in lithotomy stirrups, draped and prepped in the usual surgical fashion. A 22 Armenian cystoscope sheath with 30 angle lens was inserted into the bladder without difficulty. Upon entering the bladder, the bladder was noted to be free of tumor free of stone. Both orifices were in their orthotopic position. The left ureter orifice had a double-J stent in place, which was grasped by an alligator forcep, and extracted intact, along with the cystoscope, without difficulty. The cystoscope was then reinserted into the bladder. The left ureter orifice was intubated with an 8fr cone-tip catheter, and a retrograde pyelogram, with fluoroscopy, was performed revealing a 17mm filling defect, c/w stone at the renal pelvis. The cone-tipped catheter was removed, and the contrast material drained fairly quickly. The left orifice was intubaed with a 0.035 Glidewire, which was advanced into the left renal pelvis without difficulty. Placement of the wire was confirmed with fluoroscopy. Leaving the Glidewire in place. the flexible ureteroscope was railroaded over the gluidewire ;which followed the wire into the bladder, up the ureter, and into the left renal pelvis, with fluoroscopy visualization. A retrograde pyelogram was again performed via the ureteroscope revealing the filling defect, normal appearing left renal pelvis, and calyxes anatomy. Pyeloscopy/calyxoscopy of the upper, middle, and lower poles, reveal no evidence of tumor. As the ureteroscope was retracted along the ureter, the 17mm renal pelvis stone was visualized. A 360 g holmium/YAG laser fiber was inserted into the ureteroscope. With the laser fiber in direct contact with the stone, laser lithotripsy of the stone was performed, in order to completely pulverize this stone. The laser fiber was removed, and using the 0-tip basket, some of the stone fragments were grasped, and extracted without difficulty. The 0.035 was reinserted through the ureteroscope into the left renal pelvis. As the ureteroscope was extracted, the remainder of the left ureter was visualized, revealing NO other stones, nor any tumor. The entire length of the ureter was visualized on the way out. The Glidewire was backloaded onto the 22 Armenian cystoscope sheath with a 30 angle lens. The cystoscope was reinserted into the bladder. A 6 x 22 Bard onlay stent was railroaded over the Glidewire, and advanced into the left renal pelvis without difficulty. . The Glidewire was removed, and the stent remained in proper place. The bladder was then left full, and the cystoscope was removed. The lower abdomen with the suprapubic tube in place was then draped and prepped in the usual surgical fashion. The old Villa catheter was deflated and extracted without difficulty. A new 18 Armenian Villa catheter was inserted into the suprapubic tract, which drained clear fluid. 10 mL of sterile water was placed into the balloon. After cleaning the site of the Betadine, drainage sponges were placed on the suprapubic tract. The patient tolerated the procedure well. All sponge needle and instrument count were correct at the end of the case. The patient was then taken to the recovery room in satisfactory condition. Findings: Large staghorn calculus completely pulverized requiring reinsertion of new stent in order to facilitate drainage of these crystals. Stent will be removed after the right stone has also been treated in the next few weeks. Discharge Disposition: PACU Additional Comments: Discharge per medicine, follow up in 4-6 weeks' time for the right stone to be treated, and left stent removed. CC: Kilo BORGES,Stuart
[2017-02-15 12:55] LABS: ABSOLUTE BASOPHIL COUNT 0 /CUMM (0.0-0.2); ABSOLUTE EOSINOPHIL COUNT 0.2 /CUMM (0.0-0.7); ABSOLUTE GRANULOCYTE CT 4.2 /CUMM (1.4-6.5); ABSOLUTE LYMPH COUNT 2.5 /CUMM (1.2-3.4); ABSOLUTE MONOCYTE COUNT 0.4 /CUMM (0.10-0.60); BASOPHIL % 0.4 % (0.0-2.0); EOSINOPHIL % 2.2 % (0-5); HEMATOCRIT 32.2 % (42-52); MEAN CORPUSCULAR HGB 29.8 PG (27.0-31.0); MEAN CORPUSCULAR HGB CONC 33.2 G/DL (33.0-37.0); MEAN CORPUSCULAR VOLUME 89.7 FL (80.0-94.0); MEAN PLATELET VOLUME 8.1 FL (7.4-10.4); PLATELET COUNT 225 /CUMM (130-400); RBC DISTRIBUTION WIDTH 14.5 % (11.5-14.5); RED BLOOD CELL CT 3.59 /CUMM (4.70-6.10); WHITE BLOOD CELL COUNT 7.3 /CUMM (4.8-10.8)
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
[2017-02-15 14:23] VITALS: BP 110/90
[2017-02-15 23:27] VITALS: BP 100/60
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
[2017-02-16 06:45] VITALS: BP 118/82; BP 18/82
[2017-02-16 09:11] LABS: MEAN CORPUSCULAR HGB 30.4 PG (27.0-31.0); MEAN CORPUSCULAR VOLUME 89.3 FL (80.0-94.0); PLATELET COUNT 232 /CUMM (130-400); RBC DISTRIBUTION WIDTH 15.1 % (11.5-14.5); RED BLOOD CELL CT 3.36 /CUMM (4.70-6.10); WHITE BLOOD CELL COUNT 5.8 /CUMM (4.8-10.8)
[2017-02-16 12:25] VITALS: BP 118/82
--- NOTE | 2017-02-16 13:40 | PN- Infect Dx ---
Subjective Subjective: No fever. Review of Systems Comments: 12 points reviewed as noted, otherwise negative. Objective Last 24 Hrs of Vital Signs/I&O Vital Signs Date Time Temp Pulse Resp B/P B/P Pulse O2 O2 Flow FiO2 Mean Ox Delivery Rate 02/16 1225 97.6 64 16 118/82 02/16 0645 97.6 64 16 118/82 96 Room Air 02/15 2327 97.9 64 20 100/60 94 02/15 1423 98.5 67 20 110/90 95 Intake & Output 02/16 1600 02/16 0800 02/16 0000 Intake Total 300 200 Output Total 425 1151 Balance -125 -951 Intake, Oral 300 200 Number 0 2 Bowel Movements Output, Stool 1 Output, Urine 425 1150 Physical Exam Other Physical Findings: Afebrile. He is awake and alert, chronically ill. Skin reveals no rash. HEENT negative. Neck is supple with no adenopathy. Lungs are clear. Heart regular rhythm with no murmur. Abdomen is soft, nontender with positive bowel sounds; suprapubic tube in place with no inflammation at the site. Back right percutaneous nephroureteral catheter in place with no inflammation at the site; no definite CVA tenderness. Extremities contracted extremities, with no cyanosis, clubbing or edema. Neuro: awake; twitching of the hands, not answering questions Results Last 24 Hours of Lab Results: Laboratory Tests 02/16 0820 Chemistry Sodium (137 - 145 mmol/L) 141 Potassium (3.5 - 5.1 mmol/L) 3.9 Chloride (98 - 107 mmol/L) 105 Carbon Dioxide (22 - 30 mmol/L) 24 Anion Gap (5 - 16) 12 BUN (9 - 20 mg/dL) 11 Creatinine (0.7 - 1.2 mg/dL) 0.7 Estimated GFR (>60 ml/min) > 60 BUN/Creatinine Ratio (7 - 25 %) 15.7 Hematology CBC w Diff MAN DIFF ORDERED WBC (4.8 - 10.8 /CUMM) 5.8 RBC (4.70 - 6.10 /CUMM) 3.36 L Hgb (14.0 - 18.0 G/DL) 10.2 L Hct (42 - 52 %) 30.0 L MCV (80.0 - 94.0 FL) 89.3 MCH (27.0 - 31.0 PG) 30.4 RDW (11.5 - 14.5 %) 15.1 H Plt Count (130 - 400 /CUMM) 232 MPV (7.4 - 10.4 FL) 8.0 Segmented Neutrophils (42.2 - 75.2 %) 41 L Band Neutrophils (0.0 - 5.0 %) 2 Lymphocytes (20.5 - 51.1 %) 46 Monocytes (1.7 - 9.3 %) 7 Eosinophils (0 - 5.0 %) 2 Basophils (0.0 - 2.0 %) 1 Myelocytes (0 - 0 %) 1 H Platelet Estimate (ADEQUATE) ADEQUATE Hypochromic-Microcytic 1+ Anisocytosis 1+ PUBS MCHC (33.0 - 37.0 G/DL) 34.0 Last 24 Hours of Yossi Results: SPEC #: [id number] LINDA: 02/12/17 STATUS: COMP RECD: 02/12/[address]: Bharati Randle SOURCE: URINE ROUT ENTR: 02/12/[address]: Kristian BORGES, Sumi Genao SPDESC: UNK URINE ORDERED: URINE CULTURE COMMENT: UC ADDED AT 1551. CM Procedure Result > URINE CULTURE Final 02/15/17 Greater than 100,000 colonies per ml of: MORGANELLA MORGANII 1. MORGANELLA MORGANII RX AB ------ -- AMPICILLIN R CEFAZOLIN R AMOXICILLIN/CLAVULINIC ACID R AMPICILLIN/SULBACTAM R CEFOXITIN S CEFTAZIDIME S CEFTRIAXONE S CIPROFLOXACIN R GENTAMICIN R MEROPENEM S NITROFURANTOIN R TRIMETHOPRIM/SULFAMETHOXAZOLE R Note: Infectious Diseases Society of [place] Guidelines state that asymptomatic bacteriuria is not associated with any increase in morbidity or mortality in most patients and therefore treatment is usually not indicated unless patients are less than five years old, or about to undergo urological procedures. Recent Imaging Studies: CT A/P 02/12 Redemonstrated right-sided percutaneous nephrostomy tube and bilateral nephroureteral stent placement. Stable positioning of the devices when compared to the prior study. The bladder is decompressed with a suprapubic catheter in place. A large calculus within the left renal pelvis measuring up to 1.1 cm in size is stable as is a 5 mm calculus adjacent to the left ureteral stent on image 54 of series 2. A large radiopaque renal calculus within the right renal pelvis also is unchanged in appearance, measuring up to 1.6 cm in size. Multiple additional calculi within the left and right kidney are similar to the prior examination. There is no new dilatation of the renal collecting systems or ureters. Large volume intracolonic stool. The large and small bowel are normal in caliber without evidence of mechanical obstruction. No focal inflammatory changes adjacent to the large or the small bowel. The appendix is normal. There is no free air and there is no intra-abdominal free fluid. No mesenteric or retroperitoneal adenopathy. The pelvic viscera are normal. No pelvic adenopathy. No free fluid within the pelvis. There are no acute osseous abnormalities. Thoracolumbar degenerative changes are stable. Severe degenerative changes involving the right femoral acetabular joint. Fat-containing inguinal hernias bilaterally. IMPRESSION: - Redemonstrated postoperative changes following placement of a right percutaneous nephrostomy tube and bilateral nephroureteral stents, the position of which remains unchanged in comparison to the previous study. Stable appearance of large calculi within the right and left renal pelvis as well as a calculus within the left ureter adjacent to the left ureteral stent. There is no new dilatation of the renal collecting systems. Mild dilatation of the distal left ureter is stable. The bladder remains decompressed with a suprapubic catheter in place. - Large volume intracolonic stool. No bowel obstruction. DICTATED BY: Renzo Mtz MD DATE/TIME DICTATED:02/13/17110 SAND SCREENER:KAYLEIGH DATE/TIME TRANSCRIBED:02/13/17110 CONFIDENTIAL, DO NOT COPY WITHOUT APPROPRIATE AUTHORIZATION. Assessment/Plan Impression: 61-year-old man, longterm resident, with a history of Lewy body dementia, neurogenic bladder, status post suprapubic cystostomy, bilateral nephrolithiasis , status post placement of a left ureteral stent by Urology and a right percutaneous nephroureteral catheter by IR on his last hospitalization 5 weeks prior to admission, admitted on February 12 with a report of a fever to 101 at the longterm, found on admission to be afebrile with a mild leukocytosis, with a positive urine culture for Morganella (amp C beta lactamase producing organism), now 2 days status post replacement of his left ureteral stent and laser lithotripsy of a left renal pelvic stone. The significance of the positive urine culture is unclear as it may represent colonization in a patient with a suprapubic cystostomy. Though he was reported to have a fever at the longterm he has been afebrile since admission and his leukocytosis on admission was likely secondary to hemoconcentration, given his hypernatremia, elevated H&H and platelets and increased BUN. Clinically stable followed off antibiotics. High risk for recurrent UTI's. Suggestion: 1. Further management per Urology 2. Continue to follow off antibiotics. 3. Call if fever. Trend CBC.
[2017-02-16 15:24] VITALS: BP 100/66
== END 2017-02-16 16:50 | DRG 669 ==
LOC: ERH 14:19 → ERHI 19:37 → 2NA 19:37 → ENRESERV 20:24 → ENTRNSPT 22:20 → 2NA 22:44 → CMPTRNSPT 02-13 07:30 → 2NA 02-13 07:46 → ENTRNSPT 02-14 12:31 → EDTRNSPT 02-14 12:41 → EDTRNSPTSTS 02-14 12:41 → CMPTRNSPT 02-14 13:18 → ENPENDDIS 02-16 11:50 → 2NA 02-16 16:50
PROVIDERS: Internal Medicine Endocrinology, Diabetes & Metabolism; Physician Assistant
PROC: 0T2BX0Z Change Drainage Device in Bladder, External Approach (ICD-10-PCS; principal; 2017-02-14)
PROC: 0TP98DZ Removal of Intraluminal Device from Ureter, Via Natural or Artificial Opening Endoscopic (ICD-10-PCS; principal; 2017-02-14)
PROC: 0TC78ZZ Extirpation of Matter from Left Ureter, Via Natural or Artificial Opening Endoscopic (ICD-10-PCS; principal; 2017-02-14)
PROC: 0T778DZ Dilation of Left Ureter with Intraluminal Device, Via Natural or Artificial Opening Endoscopic (ICD-10-PCS; principal; 2017-02-14)
DX: N39.0 Urinary tract infection, site not specified (principal); E87.0 Hyperosmolality and hypernatremia; F02.80 Dementia in other diseases classified elsewhere, unspecified severity, without behavioral disturbance, psychotic disturbance, mood disturbance, and anxiety; N20.0 Calculus of kidney; N13.8 Other obstructive and reflux uropathy; N40.1 Benign prostatic hyperplasia with lower urinary tract symptoms; E86.0 Dehydration; G31.83 Neurocognitive disorder with Lewy bodies; N31.9 Neuromuscular dysfunction of bladder, unspecified; F32.9 Major depressive disorder, single episode, unspecified; F41.9 Anxiety disorder, unspecified; Z66 Do not resuscitate
CPT/HCPCS: 2NASP; 36415; 74000; 74176; 81001; 82355; 82436; 87040; 87086; 87804; 87804-59; C2617; C9399; J0696; J1644; J7040; J7042; J7060

== ENCOUNTER → 2017-03-12 | Day surgery (SDC) | payer OTHER ==
[~2017-03-12] MED LIST changes: +CRANBERRY450 M1 PO
--- NOTE | 2017-03-20 07:26 | Operative Report ---
Operative/Inv Procedure Report Surgery Date: 03/12/17 Name of Procedure: left renal eswl. fluoroscopy Pre-Operative Diagnosis: bilat stone with bilat. stents. Post-Operative Diagnosis: same Estimated Blood Loss: none Surgeon/Fiberglass Technician: Stuart Boateng MD Anesthesia: moderate sedation Complications: none Operative/Procedure Note Note: The patient was taken to the operating room and placed on the ESWL table in supine position. With the patient awake, timeout was performed to confirm correct identity, procedure, laterality, anesthesia, and other pertinent silvestre- operative information. After adequate anesthesia, the patient was positioned so that the patient's left flank was positioned over the table cut-out, overlying the dome of the treatment head. Once the patient was adequately sedated, fluoroscopy, as well as Renal ultrasound was used to locate the LEFT renal stone. Renal US confirmed the presence of the stone which measured it to be approximately 10 mm in the renal pelvis. The stone was faintly visible with fluoroscopy. Renal US revealed, no hydronephrosis, and no solid tumor, and presence of the stone. The position of the stone was optimized by using fluoroscopy in AP and oblique views;placing the stone within the ESWL c-arm crosshairs. Once the stone's position was optimized , the LEFT renal E.S.W.L. was initiated at low energy level. After noting the patient's tolerance to the shockwaves, the intensitiy was ramped up to maximum level. At the end of the procedure, the left renal stone had dissintegrated. Of note, a total of 2500 shockwaves were delivered to the stone. The patient tolerated the ESWL procedures well, was awakened, then taken to recovery in satisfactory condition via stretcher. The patient was dischared home with pain medications, diet orders, and intructions to catch fragments by straining the urine. The patient to to have follow-up renal ultrasound and KUB in 1 to 2 weeks, prior to follow-up visit in my office. He will then proceed with metabolic stone work-up. Discharge Disposition: PACU CC: Stuart Boateng MD
== END ==
LOC: STS 04:33
DX: N20.0 Calculus of kidney (principal); R33.9 Retention of urine, unspecified; G31.83 Neurocognitive disorder with Lewy bodies; F02.80 Dementia in other diseases classified elsewhere, unspecified severity, without behavioral disturbance, psychotic disturbance, mood disturbance, and anxiety; Z86.718 Personal history of other venous thrombosis and embolism
CPT/HCPCS: J0696; J2250

== ENCOUNTER → 2017-03-19 | Day surgery (SDC) | payer OTHER ==
--- NOTE | 2017-03-19 13:38 | Operative Report ---
Operative/Inv Procedure Report Surgery Date: 03/19/17 Name of Procedure: Cystoscopy. Bilateral ureteroscopy. Bilateral retrograde pyelogram with fluoroscopy. Left stent removal. Right laser lithotripsy of stone with right nephro-ureter tube removal with fluoroscopy guidance. Change of suprapubic tube. Pre-Operative Diagnosis: Right renal pelvis stone. Left stent. Right nephro U tube. Neurogenic bladder /atonic. Post-Operative Diagnosis: Same Estimated Blood Loss: less than 50ml Surgeon/Criminal Justice Instructor: Stuart Boateng MD Anesthesia: laryngeal mask airway Specimens: bilat. tubes, right renal stone Complications: none Operative/Procedure Note Discharge Disposition: PACU CC: Stuart Boateng MD
--- NOTE | 2017-03-19 16:59 | RADIOLOGY REPORT ---
EXAMINATION: XR ABDOMEN CLINICAL INDICATION: Bilateral ureteroscopy, right-sided nephrostomy tube removal and right-sided lithotripsy. COMPARISON: None. TECHNIQUE: 10 spot radiographs were obtained at the time of the procedure. FLUOROSCOPY TIME: 1 minute 7 seconds. FINDINGS: Multiple spot radiographs were obtained at the time of the procedure. Full procedural detail as well as the findings will be dictated by the performing surgeon Dr. Boateng. IMPRESSION: Status post bilateral ureteroscopy, right-sided nephrostomy tube removal and right-sided lithotripsy. Full procedural detail as well as the findings will be dictated by the performing surgeon Dr. Boateng.
== END ==
LOC: STS 01:14
DX: N20.0 Calculus of kidney (principal); Z87.442 Personal history of urinary calculi; G31.83 Neurocognitive disorder with Lewy bodies; F02.80 Dementia in other diseases classified elsewhere, unspecified severity, without behavioral disturbance, psychotic disturbance, mood disturbance, and anxiety
CPT/HCPCS: 74018; 82355; J0696